=== PATIENT | male | born 1935 | race Caucasian/White ===

== ENCOUNTER 2017-01-14 18:20 | Inpatient (IN) ==
[2017-01-14] MEDS ORDERED: 0.9 % Sodium Chloride 1,000 ML IVC ONE ×2 (18:27→19:06)
--- NOTE | 2017-01-14 18:40 | Emergency Department Note ---
START Narrative - START START: I examined this patient and my medical decision-making was reviewed with the DIRECTOR CARDIOVASCULAR/PA/Advanced Practice Nurse/Resident Physician. I agree with the documented findings, disposition and treatment plan as described except to the extent set forth below. ED attending note: Patient seen with emergency medicine resident Dr. Cunningham. Please see a copy of his note for details of the H&P, evaluation, management and disposition of this patient. We independently had [id number] contact with the patient Briefly: 81-year-old male recently taken his last medicine for pneumonia comes in being found "unresponsive at home brought in by EMS is sluggish but non- lethargic. Responding to questions but fatigued. He meets sepsis criteria he is tachycardic at 125 At 24 low to 92. Ativan 1.6 with altered mental status and possible focus of infection along. Provided 35 minutes of critical care services for this patient. Patient's EKG shows nonspecific changes no acute changes when compared to prior EKG. Patient will be signed out to the evening team of Dr. Johnson and Dr. ALEX 1900, explained to the patient and the family that he will likely need to be admitted for sepsis, altered mental status. She is being signed out in serious but stabilized condition.
[2017-01-14 18:45] LABS: Basophils % 0.1 %; Eosinophils # 0.1 K/mcL (0.0-0.6); Eosinophils % 0.4 %; Hematocrit 32.8 % (37.5-50.1); Hemoglobin 10.8 g/dL (12.9-16.9); Immature Granulocytes % 0.5 % (0-4); Lymphocytes # 0.3 K/mcL (0.6-4.6); Lymphocytes % 1.9 %; Mean Corpuscular HGB Conc 32.9 g/dL (31.6-35.5); Mean Corpuscular Hemoglobin 28.9 pg (28.0-33.3); Mean Corpuscular Volume 87.7 fL (83.0-100.0); Mean Platelet Volume 10.1 fL (9.4-12.4); Monocytes # 0.7 K/mcL (0.0-1.3); Monocytes % 4.4 %; Neutrophils # 15.3 K/mcL (1.6-8.9); Platelet Count 277 K/mcL (140-400); Red Blood Count 3.74 M/mcL (4.19-5.50); Red Cell Distribution Width 12.3 % (11.5-14.5); Segmented Neutrophils % 92.7 %
--- NOTE | 2017-01-14 18:46 | Emergency Department Note ---
START Narrative - START START: 81-year-old male presenting from home with generalized weakness, altered mental status. 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 He was diagnosed with pneumonia within the last few weeks. He just finished his last antibiotic filled today. Reports that he has been feeling well up until this afternoon. The family states that there was some associated confusion and that they were unable to get him up due to generalized weakness. He then became very confused. They called a family friend over to help get him up. The family friend said that he was minimally responsive but was breathing. Upon EMS arrival, patient was alert and oriented 3. His blood glucose was 200, although he does not have a history of diabetes. His initial oxygen saturation was 72% on room air, but was placed on 3 L of oxygen and improved to 92%. Family reports a recent checkup with Dr. Moffett, since patient does have a history of 3 stents. They state that he was due for an upcoming echo to evaluate heart function. Patient denies any pain currently, just states he feels very weak and fatigued. Has a very dry mouth and has not been able to eat or drink much. On exam, patient appears very frail and chronically ill. His mucous membranes are extremely dry. His pupils are equal and reactive to light bilaterally, with normal extraocular movements. His heart is tachycardic with a faint systolic murmur. Lungs have diminished breath sounds bilaterally with no obvious rhonchi. Abdomen is soft, nontender, nondistended. There is no peripheral edema. Cap refill is about 3 seconds in bilateral upper extremities. Peripheral pulses are intact in all 4 extremities. There is no diaphoresis or cyanosis or pallor. The patient clearly meets SEPSIS criteria. Sepsis labs have been ordered. Likely source is pneumonia. We will also consider pulmonary embolism due to hypoxia and tachycardia. Patient will be signed out to the nighttime team.
[2017-01-14 18:51] LABS: INR 1.2; Prothrombin Time 13.3 Seconds (9.4-12.1)
[2017-01-14 18:54] LABS: Activated Partial Thrombo Time 28.8 Seconds (26.0-36.0)
[2017-01-14 19:01] LABS: Alanine Aminotransferase 16 Units/L (0-55); Albumin 2.9 g/dL (3.5-5.0); Albumin/Globulin Ratio 0.8 (1.1-2.2); Alkaline Phosphatase 51 Units/L (38-126); Aspartate Amino Transferase 14 Units/L (5-34); BUN/Creatinine Ratio 16 (6-26); Bilirubin,Direct 0.3 mg/dL (0.0-0.5); Bilirubin,Indirect 0.2 mg/dL (0.0-1.2); Bilirubin,Total 0.5 mg/dL (0.2-1.2); Blood Urea Nitrogen 14 mg/dL (8-26); Calcium 9.2 mg/dL (8.6-10.8); Carbon Dioxide 29 mEq/L (19-29); Chloride 95 mEq/L (98-109); Globulin 3.5 g/dL (2.4-3.5); Glucose 147 mg/dL (70-99); Magnesium 1.6 mg/dL (1.6-2.6); Osmolality,Calculated 277 (280-300); Phosphorous 2.2 mg/dL (2.3-4.7); Potassium 4.2 mEq/L (3.5-4.5); Sodium 132 mEq/L (136-145); Total Protein 6.4 g/dL (6.0-8.3); eGFR For African Americans > 60 (> 60); eGFR For Non-African Americans > 60 (> 60)
[2017-01-14] MEDS ORDERED: Ipratropium/Albuterol Neb 3 ML IH ONE (19:06)
--- NOTE | 2017-01-14 19:06 | Emergency Department Note ---
Disposition Clinical Impression: Hypoxia, Elevated troponin, Dehydration Sepsis Qualifiers: Sepsis type: sepsis due to unspecified organism Qualified Code(s): A41.9 - Sepsis, unspecified organism Pneumonia Qualifiers: Pneumonia type: due to unspecified organism Laterality: unspecified laterality Lung location: unspecified part of lung Qualified Code(s): J18.9 - Pneumonia, unspecified organism Leukocytosis Qualifiers: Leukocytosis type: unspecified Qualified Code(s): D72.829 - Elevated white blood cell count, unspecified Disposition: Admitted As Inpatient Condition: Fair Time of Disposition: 20:35 General Adult HPI - General Chief complaint: ED Altered Mental Status Stated complaint: AMS/sepsis Time Seen by Provider: 01/14/17 18:26 Source: patient, family, EMS Mode of arrival: EMS Limitations: no limitations, altered mental status Nursing Notes Reviewed: Yes Vital Signs Reviewed: Yes - History of Present Illness HPI Narrative: Patient is an 81-year-old male with past history of A. fib, hypertension, recent diagnosis of pneumonia. Patient states that he just finished an outpatient course of Levaquin yesterday. He states he has continued and worsening cough, shortness of breath, fevers. He is very weak, has had decreased fluid and food intake. He said that he got so weak on that he slowly fell to his knees and could not get up. Denies any chest pain, nausea, vomiting , abdominal pain, diarrhea, numbness, tingling, weakness, headache, loss of consciousness, any injury when he slowly fell. Pain Scale: 0 - Related Data Home Medications Medication Instructions Recorded Confirmed Cholecalciferol (Vitamin D3) 2,000 unit PO DAILY 07/23/15 01/14/17 [Vitamin D] Finasteride [Proscar] 5 mg PO DAILY 07/23/15 01/14/17 Tamsulosin [Flomax] 0.8 mg PO DAILY 07/23/15 01/14/17 Alprazolam [Xanax 0.5 MG Tablet] 0.5 mg PO HS 01/14/17 01/14/17 Diltiazem [Cardizem] 60 mg PO BID 01/14/17 01/14/17 Ferrous Sulfate 325 mg PO DAILY 01/14/17 01/14/17 Folic Acid 0.8 mg PO DAILY 01/14/17 01/14/17 Gabapentin [Neurontin] 1,600 mg PO HS 01/14/17 01/14/17 Gabapentin [Neurontin] 800 mg PO BID 01/14/17 01/14/17 HYDROcodone/Acet 7.5/325 mg [[place] 1 tab PO QID PRN 01/14/17 01/14/17 7.5-325 mg] Losartan Potassium [Cozaar] 100 mg PO DAILY PRN 01/14/17 01/14/17 Magnesium Oxide [Magnesium] 400 mg PO DAILY 01/14/17 01/14/17 Pravastatin Sodium [Pravachol] 40 mg PO HS 01/14/17 01/14/17 Ubidecarenone [Co Q-10] 200 mg PO DAILY 01/14/17 01/14/17 Vitamin E Acid Succinate [Vitamin 400 units PO DAILY 01/14/17 01/14/17 E] Allergies Allergy/AdvReac Type Severity Reaction Status Date / Time No Known Allergies Allergy Verified 07/18/15 10:18 All systems ED: reviewed and negative except as stated. Constitutional: Reports: fever Cardiovascular: Denies: chest pain, palpitations Respiratory: Reports: cough, dyspnea, wheezes Gastrointestinal: Denies: abdominal pain, nausea, vomiting, diarrhea Genitourinary: Denies: urgency, dysuria Musculoskeletal: Denies: back pain Integumentary: Denies: rash Neurological: Denies: headache, weakness, numbness, paresthesias Past Medical History - Past Medical History Attestation: Yes The following information was validated with the patient. Source: patient Medical history: Reports: atrial fibrillation, coronary artery disease, hypertension Psychiatric history: Reports: no psych history - Social History Smoking Status: Never smoker Smokeless Tobacco Status: No Alcohol use: Reports: none Drug use: Reports: none Physical Exam - General Limitations: no limitations, altered mental status General appearance: other (Listless, appears very dehydrated, dry mucous membranes, weak voice, generalized weakness on exam) - Head Head exam: atraumatic, normocephalic, normal inspection - Eye Eye exam: Present: normal appearance, PERRL, EOMI - ENT ENT exam: mucous membranes dry - Neck Neck exam: Present: normal inspection, full ROM, trachea midline - Chest Chest inspection: Present: normal inspection, symmetric chest wall rise - Respiratory Respiratory exam: Present: wheezes (and rhonchi in all lung salgu[place]) - Cardiovascular Cardiovascular exam: Present: normal rhythm, tachycardia, normal heart sounds - Abdominal Exam Abdominal exam: Present: soft, Non-Tender. Absent: tenderness, distention, guarding, rebound, rigidity - Extremities Exam Extremities exam: Present: normal inspection, full ROM. Absent: tenderness, pedal edema - Neurological Exam Neurological exam: Present: alert, oriented X3, CN II-XII intact, other ( Generalized weakness but no focal neurologic deficits.). Absent: motor sensory deficit - Psychiatric Psychiatric exam: Present: normal affect, normal mood - Skin Skin exam: Present: warm, dry, intact, normal color Course Course Narrative: Patient meets sepsis criteria. He is tachycardic, has a fever, tachypnic. 96% on 3L NC. He was in 80s off O2, does not wear O2 at home. Blood pressure within normal limits. Listless, appears very dehydrated, dry mucous membranes, weak voice, generalized weakness on exam. Lungs show wheezes and rhonchi throughout. We will go ahead and start empiric Vancomycin, Zosyn, Levaquin for sepsis and failed outpatient treatment of pneumonia. Troponin 0.23. Will give aspirin. No chest pain at this time. This likely secondary to demand ischemia. D-dimer also elevated but this is likely secondary to sepsis, we have a source of cough and shortness of breath at this time. 20:13 patient has a leukocytosis. Chest x-ray shows worsening pneumonia. Vancomycin, Zosyn, Levaquin started. Vital Signs Temperature 101.6 F H 01/14/17 18:21 Pulse Rate 122 01/14/17 18:21 Respiratory Rate 22 01/14/17 18:21 Blood Pressure 155/75 01/14/17 18:21 O2 Sat by Pulse Oximetry 91 01/14/17 18:21 Temperature 97.7 F 01/15/17 03:39 Pulse Rate 71 01/15/17 03:39 Respiratory Rate 15 01/15/17 03:39 Blood Pressure 186/78 01/15/17 03:39 O2 Sat by Pulse Oximetry 93 01/15/17 03:39 Oxygen Delivery Oxygen Delivery Nasal Cannula Medical Decision Making - MDM Narrative Medical decision making narrative: Patient meets sepsis criteria. He is tachycardic, has a fever, tachypnic. 96% on 3L NC. He was in 80s off O2, does not wear O2 at home. Blood pressure within normal limits. Listless, appears very dehydrated, dry mucous membranes, weak voice, generalized weakness on exam. Lungs show wheezes and rhonchi throughout. We will go ahead and start empiric Vancomycin, Zosyn, Levaquin for sepsis and failed outpatient treatment of pneumonia. Troponin 0.23. Will give aspirin. No chest pain at this time. This likely secondary to demand ischemia. D-dimer also elevated but this is likely secondary to sepsis, we have a source of cough and shortness of breath at this time. 20:13 patient has a leukocytosis. Chest x-ray shows worsening pneumonia. Vancomycin, Zosyn, Levaquin started. - Medical Records Medical records reviewed: Yes I reviewed the patient's medical records. - Lab Data Lab results reviewed: Yes I reviewed the patient's lab results. Result diagrams: 01/14/17 18:30 01/14/17 18:30 Lab Results 01/14/17 01/14/17 01/14/17 Range/Units 18:29 18:30 18:30 WBC 16.5 H (4.3-11.1) K/mcL RBC 3.74 L (4.19-5.50) M/mcL Hgb 10.8 L (12.9-16.9) g/dL Hct 32.8 L (37.5-50.1) % MCV 87.7 (83.0-100.0) fL MCH 28.9 (28.0-33.3) pg MCHC 32.9 (31.6-35.5) g/dL RDW 12.3 (11.5-14.5) % Plt Count 277 (140-400) K/mcL MPV 10.1 (9.4-12.4) fL Immature Gran % 0.5 (0-4) % Seg Neutrophils % 92.7 % Lymphocytes % 1.9 % Monocytes % 4.4 % Eosinophils % 0.4 % Basophils % 0.1 % Neutrophils # 15.3 H (1.6-8.9) K/mcL Lymphocytes # 0.3 L (0.6-4.6) K/mcL Monocytes # 0.7 (0.0-1.3) K/mcL Eosinophils # 0.1 (0.0-0.6) K/mcL Basophils # 0.0 (0.0-0.2) K/mcL PT 13.3 H (9.4-12.1) Seconds INR 1.2 APTT 28.8 (26.0-36.0) Seconds D-Dimer 1519 H (0-500) ng/mLFEU ABG pH (7.32-7.45) pH Units ABG pCO2 (35-45) mmHg ABG pO2 (85-104) mmHg ABG HCO3 (21-27) mEQ/L ABG Total CO2 (20-26) mEq/L ABG O2 Saturation (95-98) % ABG Base Excess (-2.0 to 3.0) mEq/L Blood Gas Modality Inspired O2 % Sodium (136-145) mEq/L Potassium (3.5-4.5) mEq/L Chloride (98-109) mEq/L Carbon Dioxide (19-29) mEq/L BUN (8-26) mg/dL Creatinine (0.72-1.25) mg/dL Est GFR ( Amer) (> 60) Est GFR (Non-Af Amer) (> 60) BUN/Creatinine Ratio (6-26) Glucose (70-99) mg/dL POC Glucose 133 H (58-89) Calculated Osmolality (280-300) Lactic Acid (0.5-2.2) mmol/L Calcium (8.6-10.8) mg/dL Phosphorus (2.3-4.7) mg/dL Magnesium (1.6-2.6) mg/dL Total Bilirubin (0.2-1.2) mg/dL Direct Bilirubin (0.0-0.5) mg/dL Indirect Bilirubin (0.0-1.2) mg/dL AST (5-34) Units/L ALT (0-55) Units/L Alkaline Phosphatase (38-126) Units/L Troponin I (0-0.03) ng/mL Serum Total Protein (6.0-8.3) g/dL Albumin (3.5-5.0) g/dL Globulin (2.4-3.5) g/dL Albumin/Globulin Ratio (1.1-2.2) Urine Color (Yellow) Urine Clarity (Clear) Urine pH (5.0-8.0) pH Units Ur Specific [place] (1.010-1.025) Urine Protein (Neg-Trace) mg/dL Urine Glucose (UA) (Normal) mg/dL Urine Ketones (Negative) mg/dL Urine Blood (Negative) Urine Nitrite (Negative) Urine Bilirubin (Negative) Urine Urobilinogen (Normal) mg/dL Ur Leukocyte Esterase (Negative) Urine Microscopic RBC (0-3) per hpf Urine Microscopic WBC (0-3) per hpf Ur Squamous Epith Cells (None-Few) per lpf Urine Bacteria (None-Few) per hpf Hyaline Casts (None-Few) per lpf Ur Culture Indicated? (NO) 01/14/17 01/14/17 01/14/17 Range/Units 18:30 18:30 18:30 WBC (4.3-11.1) K/mcL RBC (4.19-5.50) M/mcL Hgb (12.9-16.9) g/dL Hct (37.5-50.1) % MCV (83.0-100.0) fL MCH (28.0-33.3) pg MCHC (31.6-35.5) g/dL RDW (11.5-14.5) % Plt Count (140-400) K/mcL MPV (9.4-12.4) fL Immature Gran % (0-4) % Seg Neutrophils % % Lymphocytes % % Monocytes % % Eosinophils % % Basophils % % Neutrophils # (1.6-8.9) K/mcL Lymphocytes # (0.6-4.6) K/mcL Monocytes # (0.0-1.3) K/mcL Eosinophils # (0.0-0.6) K/mcL Basophils # (0.0-0.2) K/mcL PT (9.4-12.1) Seconds INR APTT (26.0-36.0) Seconds D-Dimer (0-500) ng/mLFEU ABG pH (7.32-7.45) pH Units ABG pCO2 (35-45) mmHg ABG pO2 (85-104) mmHg ABG HCO3 (21-27) mEQ/L ABG Total CO2 (20-26) mEq/L ABG O2 Saturation (95-98) % ABG Base Excess (-2.0 to 3.0) mEq/L Blood Gas Modality Inspired O2 % Sodium 132 L (136-145) mEq/L Potassium 4.2 (3.5-4.5) mEq/L Chloride 95 L (98-109) mEq/L Carbon Dioxide 29 (19-29) mEq/L BUN 14 (8-26) mg/dL Creatinine 0.88 (0.72-1.25) mg/dL Est GFR ( Amer) > 60 (> 60) Est GFR (Non-Af Amer) > 60 (> 60) BUN/Creatinine Ratio 16 (6-26) Glucose 147 H (70-99) mg/dL POC Glucose (58-89) Calculated Osmolality 277 L (280-300) Lactic Acid 0.9 (0.5-2.2) mmol/L Calcium 9.2 (8.6-10.8) mg/dL Phosphorus 2.2 L (2.3-4.7) mg/dL Magnesium 1.6 (1.6-2.6) mg/dL Total Bilirubin 0.5 (0.2-1.2) mg/dL Direct Bilirubin 0.3 (0.0-0.5) mg/dL Indirect Bilirubin 0.2 (0.0-1.2) mg/dL AST 14 (5-34) Units/L ALT 16 (0-55) Units/L Alkaline Phosphatase 51 (38-126) Units/L Troponin I 0.23 H* (0-0.03) ng/mL Serum Total Protein 6.4 (6.0-8.3) g/dL Albumin 2.9 L (3.5-5.0) g/dL Globulin 3.5 (2.4-3.5) g/dL Albumin/Globulin Ratio 0.8 L (1.1-2.2) Urine Color (Yellow) Urine Clarity (Clear) Urine pH (5.0-8.0) pH Units Ur Specific [place] (1.010-1.025) Urine Protein (Neg-Trace) mg/dL Urine Glucose (UA) (Normal) mg/dL Urine Ketones (Negative) mg/dL Urine Blood (Negative) Urine Nitrite (Negative) Urine Bilirubin (Negative) Urine Urobilinogen (Normal) mg/dL Ur Leukocyte Esterase (Negative) Urine Microscopic RBC (0-3) per hpf Urine Microscopic WBC (0-3) per hpf Ur Squamous Epith Cells (None-Few) per lpf Urine Bacteria (None-Few) per hpf Hyaline Casts (None-Few) per lpf Ur Culture Indicated? (NO) 01/14/17 01/14/17 Range/Units 19:14 19:34 WBC (4.3-11.1) K/mcL RBC (4.19-5.50) M/mcL Hgb (12.9-16.9) g/dL Hct (37.5-50.1) % MCV (83.0-100.0) fL MCH (28.0-33.3) pg MCHC (31.6-35.5) g/dL RDW (11.5-14.5) % Plt Count (140-400) K/mcL MPV (9.4-12.4) fL Immature Gran % (0-4) % Seg Neutrophils % % Lymphocytes % % Monocytes % % Eosinophils % % Basophils % % Neutrophils # (1.6-8.9) K/mcL Lymphocytes # (0.6-4.6) K/mcL Monocytes # (0.0-1.3) K/mcL Eosinophils # (0.0-0.6) K/mcL Basophils # (0.0-0.2) K/mcL PT (9.4-12.1) Seconds INR APTT (26.0-36.0) Seconds D-Dimer (0-500) ng/mLFEU ABG pH 7.39 (7.32-7.45) pH Units ABG pCO2 48 H (35-45) mmHg ABG pO2 69 L (85-104) mmHg ABG HCO3 29.1 H (21-27) mEQ/L ABG Total CO2 30.6 H (20-26) mEq/L ABG O2 Saturation 93 L (95-98) % ABG Base Excess 3.5 H (-2.0 to 3.0) mEq/L Blood Gas Modality NC Inspired O2 32 % Sodium (136-145) mEq/L Potassium (3.5-4.5) mEq/L Chloride (98-109) mEq/L Carbon Dioxide (19-29) mEq/L BUN (8-26) mg/dL Creatinine (0.72-1.25) mg/dL Est GFR ( Amer) (> 60) Est GFR (Non-Af Amer) (> 60) BUN/Creatinine Ratio (6-26) Glucose (70-99) mg/dL POC Glucose (58-89) Calculated Osmolality (280-300) Lactic Acid (0.5-2.2) mmol/L Calcium (8.6-10.8) mg/dL Phosphorus (2.3-4.7) mg/dL Magnesium (1.6-2.6) mg/dL Total Bilirubin (0.2-1.2) mg/dL Direct Bilirubin (0.0-0.5) mg/dL Indirect Bilirubin (0.0-1.2) mg/dL AST (5-34) Units/L ALT (0-55) Units/L Alkaline Phosphatase (38-126) Units/L Troponin I (0-0.03) ng/mL Serum Total Protein (6.0-8.3) g/dL Albumin (3.5-5.0) g/dL Globulin (2.4-3.5) g/dL Albumin/Globulin Ratio (1.1-2.2) Urine Color Dark Yellow (Yellow) Urine Clarity Clear (Clear) Urine pH 6.0 (5.0-8.0) pH Units Ur Specific [place] 1.023 (1.010-1.025) Urine Protein Trace (Neg-Trace) mg/dL Urine Glucose (UA) Normal (Normal) mg/dL Urine Ketones Negative (Negative) mg/dL Urine Blood Negative (Negative) Urine Nitrite Negative (Negative) Urine Bilirubin Small H (Negative) Urine Urobilinogen Normal (Normal) mg/dL Ur Leukocyte Esterase Negative (Negative) Urine Microscopic RBC 0-3 (0-3) per hpf Urine Microscopic WBC 0-3 (0-3) per hpf Ur Squamous Epith Cells Many H (None-Few) per lpf Urine Bacteria None Seen (None-Few) per hpf Hyaline Casts None Seen (None-Few) per lpf Ur Culture Indicated? NO (NO) - Radiology Data Radiology results reviewed: Yes I reviewed the patient's radiology results. Chest X-Ray 01/14/17 18:27 IMPRESSION: Increasing patchy multifocal pneumonia, possibly an atypical or viral pneumonia. D/ / Adi So MD / Adi So MD Interpreting Provider: Adi So MD Critical Care Time Critical Care Time: Yes Total Critical Care Time: 35 Attestation: Acute hypoxia and non-ST elevation LA. Multifocal pneumonia Butch - Butch Situation: Demographics, MOA Background: Presenting Complaint, Relevant PMH, Meds, & Allergies Assessment: Vital Signs, Course and respsone to treatment, Exam Concerns, Patient/Family Expectation, Pertinant Lab Results, Outstanding Labs Recommendation: Barrier(s) to disposition, Recommendation based on pending studies, treatments, or consults Butch Report Given to: Dr. Fritz Rae Repor Time: 20:34 Attestation Statement - Attestation Attestation: Dr. Johnson note: Patient was seen in conjunction with resident Dr. David Castañeda; please see his chart for complete documentation. I spent [id number] time with the patient and agree with the patient's treatment and disposition. Patient's blood work was reviewed. Imaging is consistent with pneumonia. Afebrile. Blood pressure stable. Admitted in stabilized improvement in improved condition. Troponin was also noted. Case was discussed extensively with the hospitalist. Admitted in improved condition
[2017-01-14] MEDS ORDERED: Aspirin 325 MG TABLET PO ONE (19:13)
[2017-01-14 19:23] LABS: Bilirubin,Urine Small (Negative); Blood,Urine Negative (Negative); Clarity,Urine Clear (Clear); Color,Urine Dark Yellow (Yellow); Glucose,Urine (UA) Normal (Normal); Ketones,Urine Negative (Negative); Leukocyte Esterase,Urine Negative (Negative); Nitrite,Urine Negative (Negative); Protein,Urine Trace mg/dL (Neg-Trace); Specific Gravity,Urine 1.023 (1.010-1.025); Urobilinogen,Urine Normal (Normal)
[2017-01-14 19:26] LABS: Bacteria,Urine None Seen per hpf (None-Few); Hyaline Casts,Urine None Seen per lpf (None-Few); RBC,Urine 0-3 per hpf (0-3); Squamous Epithelial Cell,Urine Many per lpf (None-Few); WBC,Urine 0-3 per hpf (0-3)
[2017-01-14 19:38] LABS: ABG Base Excess 3.5 mEq/L (-2.0 to 3.0); ABG HCO3 29.1 mEQ/L (21-27); ABG Oxygen Saturation 93 % (95-98); ABG PCO2 48 mmHg (35-45); ABG PH 7.39 pH Units (7.32-7.45); ABG PO2 69 mmHg (85-104); ABG TCO2 30.6 mEq/L (20-26)
[2017-01-14 19:39] LABS: Blood Gas FiO2 32 %
[2017-01-14] MEDS ORDERED: Piperacillin/Tazobactam 3.375 GM in D5% in Water (Mini-Bag+) 100 ML IVPB ONE (20:07)
[2017-01-14] MEDS ORDERED: Levofloxacin 750 MG/150 ML 750 MG/150 ML BAG IVPB ONE (20:07)
[2017-01-14] MEDS ORDERED: Vancomycin 750 MG in D5% in Water 250 ML IVPB ONE (20:08)
[2017-01-14] MEDS ORDERED: Acetaminophen 325 MG TABLET PO PRN (23:25)
[2017-01-14] MEDS ORDERED: Ondansetron 4 MG/2 ML VIAL IVP PRN (23:25)
[2017-01-14] MEDS ORDERED: 0.9 % Sodium Chloride 1,000 ML IVC SCH (23:30)
--- NOTE | 2017-01-14 23:53 | Internal Med History&Physical ---
<Carolina Pham - Last Filed: 01/15/17 01:15> Date of Encounter: 01/15/17 Time of Encounter: 23:00 Assessment and Plan (1) Sepsis Current visit: Yes Status: Acute - With fever (T 101.6), tachycardia, tachypnea, leukocytosis (WBC 16.5), some degree of altered mental status. Lactic acid 0.9. - Likely secondary to pneumonia failed to response to outpatient levofloxacin therapy in the setting of dehydration from poor oral intake recently. - Blood culture pending. - UA does not suggest UTI. - Will obtain sputum culture with gram stain. - Also check respiratory infection panel and urine antigens for Legionella & S. pneumoniae. - Hydration with IV NS. - Continue IV vancomycin, Zosyn and levofloxacin. Will de-escalate later based on clinical findings and culture results. - Closely monitor. Qualifiers: Sepsis type: sepsis due to unspecified organism Qualified Code(s): A41.9 - Sepsis, unspecified organism (2) Acute respiratory failure with hypoxia Current visit: Yes Status: Acute - Patient was noted to have O2 sat in 80s on room air in ED. - Patient is currently on 2L oxygen with O2 sat ~95%. Patient does not use oxygen at home. - ABG pH 7.39, pCO2 48, pO2 69 and HCO3 29.1. - Likely secondary to current pneumonia. - Continue supplemental oxygen. - Duoneb prn shortness of breath. - Continue to monitor. (3) Pneumonia Current visit: Yes Status: Acute - Community acquired pneumonia with failure to response to outpatient levofloxacin therapy. - CXR suggests worsening multifocal pneumonia, likely atypical vs viral. - Will obtain sputum culture with gram stain. - Also check respiratory infection panel and urine antigens for Legionella & S. pneumoniae. - Continue IV vancomycin, Zosyn and levofloxacin. Will de-escalate later based on clinical findings and culture results. Qualifiers: Pneumonia type: due to unspecified organism Laterality: unspecified laterality Lung location: unspecified part of lung Qualified Code(s): J18.9 - Pneumonia, unspecified organism (4) Elevated troponin Current visit: Yes Status: Acute - Troponin at 0.23 on admission and then increased to 0.89 after 6 hours. - Likely secondary to current sepsis - Doubt MA given no reported chest pain and no significant ischemic change on EKG. - Continue to trend troponin q6H. - Closely monitor with telemetry. (5) D-dimer, elevated Current visit: Yes Status: Acute - Elevated D-dimer at 1519. - Likely secondary to current sepsis. But cannot rule out pulmonary embolism given patient does have recent long-distance drive and history of cancer. - Will obtain CTA chest to evaluate for any possible PE. (6) Hypertension Current visit: Yes Status: Chronic - BP within normal range. - Continue home dose Losartan. Qualifiers: Hypertension type: essential hypertension Qualified Code(s): I10 - Essential (primary) hypertension (7) DVT prophylaxis Current visit: Yes Status: Acute - SQ heparin. Internal Medicine - H&P: HPI Chief complaint: Generalized weakness, fever, cough, shortness of breath, confusion Admitted From: Emergency Dept Plans for Post Hospital Care: Home History of present illness: Mr. 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 Patient presented with generalized weakness and fever. Patient started to fever, shortness of breath and productive cough with green sputum since 01/04. Patient saw his PCP Dr. Mora on 01/05 and was started on PO levofloxacin which he just finished the course today. Patient reports the shortness of breath and cough improves but still has fever as high as 103 at home. Patient still has feel sick with generalized weakness especially on bilateral lower extremities. Patient also has poor appetite and oral intake due to current illness. Patient also has some chest muscle soreness which he thinks it's from cough. Patient denies chest pain/pressure, palpitation, lightheadedness, syncope, abdominal pain, nausea, vomiting, diarrhea, skin rash/ itchiness. Patient's reports recent drive back from [place] with frequent stops. Patient reports no known personal or family history of blood clot disorder. Patient is up to date for all his vaccinations including flu shot and denies recent sick contact. In ED, patient was noted to have fever 101.6, tachycardia and tachypnea with O2 sat in 80s on room air. Patient doesn't use oxygen at home. CXR showed increased patchy multifocal pneumonia, likely atypical vs. viral pneumonia. Patient received bolus of IV NS and started on IV vancomycin, Zosyn and levofloxacin. Patient is admitted for further evaluation and management. 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), coronary artery disease (s/p heart cath and LAD BMS x3 in 2011), hyperlipidemia, hypertension Psychiatric history: no psych history - Past Surgical History Surgical History: angioplasty/stent (LAD BMS x3 in 2011), appendectomy, carotid endarterectomy (Right, with angioplasty) - Social History Smoking Status: Former smoker Smokeless Tobacco Status: No Alcohol use: none Drug use: none - Family History Father Living Status: Age at : 92 Cause of : Age Mother Living Status: Age at : 74 Cause of : pneumonia Hx Family Cardiac Disorders: Yes Internal Medicine - H&P: Meds Cholecalciferol (Vitamin D3) [Vitamin D] 2,000 unit PO DAILY 07/23/15 [History] Finasteride [Proscar] 5 mg PO DAILY 07/23/15 [History] Tamsulosin [Flomax] 0.8 mg PO DAILY 07/23/15 [History] Alprazolam [Xanax 0.5 MG Tablet] 0.5 mg PO HS 01/14/17 [History] Diltiazem [Cardizem] 60 mg PO BID 01/14/17 [History] Ferrous Sulfate 325 mg PO DAILY 01/14/17 [History] Folic Acid 0.8 mg PO DAILY 01/14/17 [History] Gabapentin [Neurontin] 1,600 mg PO HS 01/14/17 [History] Gabapentin [Neurontin] 800 mg PO BID 01/14/17 [History] HYDROcodone/Acet 7.5/325 mg [[place] 7.5-325 mg] 1 tab PO QID PRN 01/14/17 [ History] Losartan Potassium [Cozaar] 100 mg PO DAILY PRN 01/14/17 [History] Magnesium Oxide [Magnesium] 400 mg PO DAILY 01/14/17 [History] Pravastatin Sodium [Pravachol] 40 mg PO HS 01/14/17 [History] Ubidecarenone [Co Q-10] 200 mg PO DAILY 01/14/17 [History] Vitamin E Acid Succinate [Vitamin E] 400 units PO DAILY 01/14/17 [History] Allergies No Known Allergies Allergy (Verified 07/18/15 10:18) All Systems PM: A 10-system review of systems was performed and is negative for pertinent findings except as documented above in the HPI. - Constitutional Constitutional: anorexia, chills, fever(s), weakness - EENT Eyes: no change in vision Ears: no decreased hearing Nose, mouth and throat: dysphagia (Chronic, s/p chemo & radiation therapy for tongue & throat cancer) - Cardiovascular Cardiovascular ROS IM: no chest pain, no edema, no lightheadedness, no palpitations, no syncope - Respiratory Respiratory: as per HPI, cough, dyspnea, change in phlegm color (Green), pain with cough, no hemoptysis - Gastrointestinal Gastrointestinal: no abdominal pain, no diarrhea, no hematochezia, no melena, no nausea, no vomiting - Genitourinary Genitourinary ROS male: no difficulty urinating, no dysuria, no hematuria - Musculoskeletal Musculoskeletal ROS IM: myalgias (Chest wall soreness), no arthralgias - Integumentary Integumentary IM: no pruritus, no rash - Neurological Neurological ROS: no focal weakness, no numbness, no tingling - Hematologic/Lymphatic Hematologic/Lymphatic: easy bruising, no easy bleeding - Constitutional Vitals: Temp Pulse Resp BP Pulse Ox 97.8 F 79 15 121/65 93 01/14/17 23:49 01/14/17 23:49 01/14/17 23:49 01/14/17 23:49 01/14/17 23:49 General appearance: Present: cooperative, A&O X 3 ([place] to self, place and part of time (year). Per family at bedside, patient is slightly confused compared to his baseline. ), no acute distress, answers questions appropriately - Head Head exam: Present: atraumatic, normocephalic - Eye Eye exam: Present: EOMI, PERRL, conjuntiva pink, sclera anicteric - Neck Neck exam general surgery: Present: supple, trachea midline. Absent: lymphadenopathy - Respiratory Respiratory exam: Present: rales (Diffuse), rhonchi (Diffuse). Absent: accessory muscle use, wheezes - Cardiovascular Cardiovascular exam: Present: RRR, +S1, +S2. Absent: diastolic murmur, gallop, rubs, systolic murmur - GI/Abdominal GI/Abdominal exam: Present: normal bowel sounds, soft, no peritoneal signs. Absent: distended, tenderness - Extremities Exam Extremities exam: Present: warm, radial pulses palpable and symetrical. Absent : calf tenderness, cyanotic, pedal edema - Neurological Exam Neurological exam: Present: CN II-XII intact, oriented X3, no focal deficits. Absent: pronater drift, facial droop, speech deficit - Skin Skin exam: Present: dry, intact, warm Internal Med - H&P Results - Labs CBC & Chem 7: 01/14/17 18:30 01/14/17 18:30 Labs: Short CBC 01/14/17 Range/Units 18:30 WBC 16.5 H (4.3-11.1) K/mcL Hgb 10.8 L (12.9-16.9) g/dL Hct 32.8 L (37.5-50.1) % Plt Count 277 (140-400) K/mcL Neutrophils # 15.3 H (1.6-8.9) K/mcL BMP 01/14/17 Range/Units 18:30 Sodium 132 L (136-145) mEq/L Potassium 4.2 (3.5-4.5) mEq/L Chloride 95 L (98-109) mEq/L Carbon Dioxide 29 (19-29) mEq/L BUN 14 (8-26) mg/dL Creatinine 0.88 (0.72-1.25) mg/dL Glucose 147 H (70-99) mg/dL Calcium 9.2 (8.6-10.8) mg/dL Cardiac Enzymes 01/14/17 Range/Units 18:30 Troponin I 0.23 H* (0-0.03) ng/mL Liver Function 01/14/17 Range/Units 18:30 Total Bilirubin 0.5 (0.2-1.2) mg/dL Direct Bilirubin 0.3 (0.0-0.5) mg/dL AST 14 (5-34) Units/L ALT 16 (0-55) Units/L Alkaline Phosphatase 51 (38-126) Units/L Albumin 2.9 L (3.5-5.0) g/dL Urine 01/14/17 Range/Units 19:14 Urine Color Dark Yellow (Yellow) Urine Clarity Clear (Clear) Urine pH 6.0 (5.0-8.0) pH Units Ur Specific [place] 1.023 (1.010-1.025) Urine Protein Trace (Neg-Trace) mg/dL Urine Glucose (UA) Normal (Normal) mg/dL - EKG Data -: EKG Interpreted by Myself EKG shows normal: sinus rhythm Rate: normal - EKG Data Prior EKG available for review: yes When compared to previous EKG: there is no significant change EKG comments: 01/15/17 00:11 HR 79, ME 136, QRS 132. No significant ischemic change compared to prior EKG in 2016. - Impressions Impressions Chest X-Ray 01/14/17 18:27 IMPRESSION: Increasing patchy multifocal pneumonia, possibly an atypical or viral pneumonia. D/ / Adi So MD / Adi So MD Interpreting Provider: Adi So MD <Tim Sellersrichardprabhjot Worthington - Last Filed: 01/15/17 05:57> Date of Encounter: 01/14/17 Internal Medicine - H&P: HPI History of present illness: Mr. Dudley is a 81 year old male All Systems PM: A 10-system review of systems was performed and is negative for pertinent findings except as documented above in the HPI. - Constitutional Vitals: Temp Pulse Resp BP Pulse Ox 97.7 F 71 15 186/78 93 01/15/17 03:39 01/15/17 03:39 01/15/17 03:39 01/15/17 03:39 01/15/17 03:39 Internal Med - H&P Results - Labs CBC & Chem 7: 01/15/17 05:24 01/14/17 18:30 Labs: Short CBC 01/15/17 Range/Units 05:24 WBC 17.1 H (4.3-11.1) K/mcL Hgb 10.8 L (12.9-16.9) g/dL Hct 33.1 L (37.5-50.1) % Plt Count 273 (140-400) K/mcL Neutrophils # 14.7 H (1.6-8.9) K/mcL Cardiac Enzymes 01/14/17 Range/Units 23:50 Troponin I 0.89 H* (0-0.03) ng/mL - Impressions ITS Impressions Chest CTA 01/15/17 01:09 IMPRESSION: 1. No evidence of pulmonary emboli. 2. Diffuse scattered patchy areas of consolidation with additional multiple small airspace and ground-glass nodular opacity. Overall findings are suspicious for multifocal pneumonia. D/ / Vick Correia MD / Vick Correia MD Interpreting Provider: Vick Correia MD - Attending Attestation I performed history and physical examination of the patient and discussed management with resident/Heat Treater Helper. I reviewed the resident/ Interns note and agree with the documented findings and plan of care. 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 Patient presented with generalized weakness and fever. Pt was seen by his PCP and was diagnosed to have pneumonia on 01/05 and was started on PO levofloxacin, which he completed. Pt continues to have fever and generalized weakness. In ED, patient was noted to have fever 101.6, tachycardia and tachypnea with O2 sat in 80s on room air. CXR reported increased patchy multifocal pneumonia possibly an atypical or viral pneumonia. Patient received bolus of IV NS and started on IV vancomycin, Zosyn and levofloxacin. Patient is admitted for further evaluation and management. O/E: B/L basal crackles heard. Cardiac: RRR. EKG personally reviewed by me. Initial EKG showed sinus tachycardia with heart rate of 121, right bundle branch block, T-wave inversion and Q waves in leads 1 and aVL. EKG was repeated which showed sinus rhythm and right bundle branch block. Chest x-ray personally reviewed. Labs showed leukocytosis and elevated troponin. A/P: Multifocal pneumonia/acute respiratory failure/sepsis: Patient failed outpatient therapy with levofloxacin. Patient is started on vancomycin, Zosyn and levofloxacin. Continue. We will request a sputum culture, respiratory viral panel and pulmonary consult. Elevated troponin: Possible demand ischemia secondary to sepsis versus NSTEMI. Cardiology consultation and echocardiogram. Elevated d-dimer: will obtain CTA chest to exclude Pulmonary embolism.
[2017-01-15] MEDS ORDERED: Ipratropium/Albuterol Neb 3 ML IH PRN (00:48)
[2017-01-15] MEDS ORDERED: Vancomycin 750 MG in D5% in Water 250 ML IVPB SCH ×2 (01:00)
[2017-01-15 05:50] LABS: Basophils % 0.2 %; Eosinophils # 0.1 K/mcL (0.0-0.6); Eosinophils % 0.6 %; Hematocrit 33.1 % (37.5-50.1); Hemoglobin 10.8 g/dL (12.9-16.9); Immature Granulocytes % 0.6 % (0-4); Mean Corpuscular HGB Conc 32.6 g/dL (31.6-35.5); Mean Corpuscular Hemoglobin 29.3 pg (28.0-33.3); Mean Corpuscular Volume 89.7 fL (83.0-100.0); Mean Platelet Volume 10.3 fL (9.4-12.4); Monocytes # 1.1 K/mcL (0.0-1.3); Monocytes % 6.6 %; Neutrophils # 14.7 K/mcL (1.6-8.9); Platelet Count 273 K/mcL (140-400); Red Blood Count 3.69 M/mcL (4.19-5.50); Red Cell Distribution Width 12.5 % (11.5-14.5)
[2017-01-15 06:05] LABS: BUN/Creatinine Ratio 13 (6-26); Blood Urea Nitrogen 10 mg/dL (8-26); Calcium 8.8 mg/dL (8.6-10.8); Carbon Dioxide 25 mEq/L (19-29); Chloride 103 mEq/L (98-109); Glucose 91 mg/dL (70-99); Osmolality,Calculated 279 (280-300); Sodium 135 mEq/L (136-145); eGFR For African Americans > 60 (> 60); eGFR For Non-African Americans > 60 (> 60)
[2017-01-15] MEDS: *HR* Heparin 5,000 UNIT/ML VIAL SQ SCH ×2 (06:28→17:43)
[2017-01-15 06:40] LABS: C-Reactive Protein 102 mg/L (Less than 5); Chol/HDL Ratio 3.1 (0-4.9); Cholesterol 84 mg/dL (< 200); HDL Cholesterol 27 mg/dL (40-59); LDL Cholesterol,Calculated 48 mg/dL (0-99); Magnesium 1.8 mg/dL (1.6-2.6); Triglycerides 47 mg/dL (< 150)
[2017-01-15] MEDS: Piperacillin/Tazobactam 3.375 GM in D5% in Water (Mini-Bag+) 100 ML IVPB SCH ×3 (08:46→23:18)
[2017-01-15] MEDS: Finasteride 5 MG TABLET PO SCH (08:53)
[2017-01-15] MEDS: dilTIAZem HCl 60 MG TABLET PO SCH ×2 (08:53→21:00)
[2017-01-15] MEDS: Gabapentin 400 MG CAPSULE PO SCH ×4 (08:53→20:59)
[2017-01-15] MEDS: Magnesium Oxide 400 MG TABLET PO SCH (08:54)
--- NOTE | 2017-01-15 09:48 | Cardiology Consult Note ---
Date of Encounter: 01/15/17 Time of Encounter: 09:39 Assessment and Plan (1) Elevated troponin Current Visit: Yes Status: Acute Troponin peaking at 0.89. Likely demand ischemia in the setting of worsening pneumonia/ sepsis. Denies chest pain. Check TTE. Continue asa, statin, and CCB. Prior CV testing: Previous cardiac testing. Exercise nuclear stress test 01/18/2015: Negative for ischemia or prior infarction. Echocardiogram 01/18/2015: EF 60%. Moderate diastolic dysfunction. Mild MR, mild AI, and mild TR. Mild pulmonary hypertension . (2) CAD (coronary artery disease) Current Visit: Yes Status: Chronic H/o PCI to the LAD x 3 in 2011. Continue asa, statin, and bb. Qualifiers: Coronary Disease-Associated Artery/Lesion type: [place] artery [place] vs. transplanted heart: [place] heart Associated angina: without angina Qualified Code(s): I25.10 - Atherosclerotic heart disease of [place] coronary artery without angina pectoris (3) Pneumonia Current Visit: Yes Status: Acute - Worsening Community acquired pneumonia. Management per primary team. Blood cultures and sputum cultures pending. Qualifiers: Pneumonia type: due to unspecified organism Laterality: unspecified laterality Lung location: unspecified part of lung Qualified Code(s): J18.9 - Pneumonia, unspecified organism Discussion w patient/family: The assessment and plan as outlined above was discussed with the patient and/or family members who expressed understanding and agreement. All questions were answered. Thank you for involving us in the care of your patient. Please call with any questions. History of Present Illness Consult date: 01/15/17 Requesting physician: Tara Sellers Consult reason: Elevated troponin Chief complaint: altered mental status History of present illness: Mr. Dudley is a 81 year old male who presented after being found on the floor by his . Once he arrived to the emergency department he was arousable. He remembers standing up to reach for a TV controller and feeling dizzy. He then woke up on the floor. He reports recent diagnosis of pneumonia and was on oral antibiotics. Admits to continued weakness, shortness of breath, dizziness, fever , and chills. He states he thought he was feeling better and taking the antibiotic. Admits to cough productive of sputum that is chronic since having head and neck cancer. He denies any chest pain or palpitations. Cardiology consulted for elevated troponin peaking at 0.89. CTA of the chest was negative for PE but did show possible pneumonia. CXR showed increasing patchy multi- focal pneumonia. He was found to be febrile with a temperature 101.6, tachycardic with heart rate 120s, and had increased white blood cells at 16.5. He was admitted for sepsis. Blood cultures are pending. He has a past medical history of hypertension, coronary artery disease status post PCI 3 to the LAD in 2011, carotid artery disease s/p cea, and tounge and throat cancer status post chemotherapy and radiation. Prior CV testing: Exercise nuclear stress test 01/18/2015: Negative for ischemia or prior infarction. Echocardiogram 01/18/2015: EF 60%. Moderate diastolic dysfunction. Mild MR, mild AI, and mild TR. Mild pulmonary hypertension (RVSP 38 mmHg). Cholesterol 12/2015: Total 109, LDL 52, HDL 48, TG 46. Carotid Duplex 12/2015: Minimal plaque formation. Left vertebral artery occluded. Past Med Surg Social Fam HX - Past Medical History Medical history: cancer, coronary artery disease, hypertension Psychiatric history: no psych history - Past Surgical History Surgical History: angioplasty/stent (LAD BMS x3 in 2011), appendectomy, carotid endarterectomy (Right, with angioplasty) - Social History Smoking Status: Never smoker Smokeless Tobacco Status: No Alcohol use: none Drug use: none - Family History Father Living Status: Age at : 92 Cause of : Age Mother Name: Zulema Matos Living Status: Age at : 74 Cause of : pneumonia Hx Family Cardiac Disorders: Yes Medications and Allergies Cholecalciferol (Vitamin D3) [Vitamin D] 2,000 unit PO DAILY 07/23/15 [History] Finasteride [Proscar] 5 mg PO DAILY 07/23/15 [History] Tamsulosin [Flomax] 0.8 mg PO DAILY 07/23/15 [History] Alprazolam [Xanax 0.5 MG Tablet] 0.5 mg PO HS 01/14/17 [History] Diltiazem [Cardizem] 60 mg PO BID 01/14/17 [History] Ferrous Sulfate 325 mg PO DAILY 01/14/17 [History] Folic Acid 0.8 mg PO DAILY 01/14/17 [History] Gabapentin [Neurontin] 1,600 mg PO HS 01/14/17 [History] Gabapentin [Neurontin] 800 mg PO BID 01/14/17 [History] HYDROcodone/Acet 7.5/325 mg [[place] 7.5-325 mg] 1 tab PO QID PRN 01/14/17 [ History] Losartan Potassium [Cozaar] 100 mg PO DAILY PRN 01/14/17 [History] Magnesium Oxide [Magnesium] 400 mg PO DAILY 01/14/17 [History] Pravastatin Sodium [Pravachol] 40 mg PO HS 01/14/17 [History] Ubidecarenone [Co Q-10] 200 mg PO DAILY 01/14/17 [History] Vitamin E Acid Succinate [Vitamin E] 400 units PO DAILY 01/14/17 [History] Allergies No Known Allergies Allergy (Verified 07/18/15 10:18) All Systems Review: A 10-system review of systems was performed and is negative for pertinent findings except as documented above in the HPI. Physical Examination Vital Signs, Last 4 Hours Temp Pulse Resp BP Pulse Ox 01/15/17 07:53 98.8 F 101 22 154/72 93 01/15/17 06:03 161/56 General: Other (Frail elderly male, mildly confused) HEENT: Atraumatic, Normocephaly, Mucus Membranes Moist Neck: No JVD, Normal carotid pulses Cardiac: Reg Rate and Rhythm, Normal S1 and S2, No Murmur Lungs: Normal Breath Sounds, No Wheeze, Rales, Rhonchi, Other (diminished, cough productive of yellow sputum) Neuro: Alert and responsive, No focal deficits noted Abdomen: Soft, Non-Tender Skin: No rashes noted on visualized skin Musculoskeletal: No Chest Wall Tenderness Extremities: No Clubbing, No Cyanosis, No Edema, Normal Pulses Results 01/15/17 05:24 01/15/17 05:24 Lab Results 01/14/17 01/15/17 01/15/17 23:50 05:24 05:24 WBC 17.1 H Hgb 10.8 L Hct 33.1 L Plt Count 273 Sodium 135 L Potassium 4.0 Chloride 103 Carbon Dioxide 25 BUN 10 Creatinine 0.76 Glucose 91 Calcium 8.8 Magnesium 1.8 Troponin I 0.89 H* 01/15/17 05:24 WBC Hgb Hct Plt Count Sodium Potassium Chloride Carbon Dioxide BUN Creatinine Glucose Calcium Magnesium Troponin I 0.78 H* - Imaging and Cardiology Stress Test: report reviewed Echo: report reviewed - EKG Interpretation EKG results cardiology: personally reviewed (ST with RBBB) Consult Discharge Plan - Plan Referrals: Tulio Mora MD [Primary Care Provider] -
--- NOTE | 2017-01-15 12:19 | Internal Med Progress Note ---
Date of Encounter: 01/15/17 Time of Encounter: 12:19 - Assessment and plan (1) Sepsis Current Visit: Yes Status: Acute Assessment and plan: Tmax 101.6,tachycardia, tachypnea, leukocytosis (WBC 16.5), normal lactate Secondary to multi-focal pneumonia Blood culture pending. UA does not suggest UTI. Follow sputum culture Resp panel is pending, Urine for legionella and Strep Ag pending Continue IV vancomycin, Zosyn and azithromycin Will de-escalate prn Qualifiers: Sepsis type: sepsis due to unspecified organism Qualified Code(s): A41.9 - Sepsis, unspecified organism (2) Pneumonia Current Visit: Yes Status: Acute Assessment and plan: As above CXR suggests possibly atypial PNA Patient had received 10 days of levoflox O-P Will change levoflox to azithromycin COntinue supplemental O2 and Vanco/Zosyn Qualifiers: Pneumonia type: due to unspecified organism Laterality: unspecified laterality Lung location: unspecified part of lung Qualified Code(s): J18.9 - Pneumonia, unspecified organism (3) Elevated troponin Current Visit: Yes Status: Acute (4) Acute respiratory failure with hypoxia Current Visit: Yes Status: Acute Assessment and plan: Continue O2 (5) Hypertension Current Visit: Yes Status: Chronic Assessment and plan: Controlled, continue home meds Qualifiers: Hypertension type: essential hypertension Qualified Code(s): I10 - Essential (primary) hypertension (6) CAD (coronary artery disease) Current Visit: Yes Status: Chronic Assessment and plan: Chronic , stable No Chest pain Elevated troponin possibly from demand ischemia Cardiology eval noted ECHO remarkable for moderate LVDD, normal EF, Mild TR, Mild Pulm HTN, no WMA Qualifiers: Coronary Disease-Associated Artery/Lesion type: [place] artery [place] vs. transplanted heart: [place] heart Associated angina: without angina Qualified Code(s): I25.10 - Atherosclerotic heart disease of [place] coronary artery without angina pectoris - Subjective Interval history: Initial encounter 81 Y/O M with PMH of HTN, head and neck CA, CAD, HLD Admitted for management of acute hypoxic respiratory failure and sepsis secondary to multi-focal pneumonia Seen and evaluated at bedside Able to speak full sentences, anxious but not in any form of distress - Constitutional Vitals: Temp Pulse Resp BP Pulse Ox 98.8 F 101 22 154/72 93 01/15/17 07:53 01/15/17 07:53 01/15/17 07:53 01/15/17 07:53 01/15/17 07:53 General appearance: Present: cooperative, A&O X 3, pleasant, no acute distress, answers questions appropriately - Head Head exam: Present: atraumatic, normocephalic - Eye Eye exam: Present: PERRL, conjuntiva pink, sclera anicteric Pupils: Present: PERRL - Neck Neck exam general surgery: Present: supple, trachea midline. Absent: lymphadenopathy - Respiratory Respiratory exam: Present: rales, rhonchi - Cardiovascular Cardiovascular exam: Present: RRR, +S1, +S2. Absent: diastolic murmur, gallop, JVD, rubs, systolic murmur - GI/Abdominal GI/Abdominal exam: Present: normal bowel sounds, soft, no peritoneal signs. Absent: distended, tenderness - Extremities Exam Extremities exam: Present: warm, radial pulses palpable and symetrical. Absent : calf tenderness, cyanotic, pedal edema - Neurological Exam Neurological exam: Present: alert, CN II-XII intact, oriented X3, no focal deficits. Absent: pronater drift, facial droop, speech deficit - Skin Skin exam: Present: dry, intact Internal Medicine: Result - Labs CBC & Chem 7: 01/15/17 05:24 01/15/17 05:24 Labs: Short CBC 01/15/17 Range/Units 05:24 WBC 17.1 H (4.3-11.1) K/mcL Hgb 10.8 L (12.9-16.9) g/dL Hct 33.1 L (37.5-50.1) % Plt Count 273 (140-400) K/mcL Neutrophils # 14.7 H (1.6-8.9) K/mcL BMP 01/15/17 05:24 Sodium 135 L Potassium 4.0 Chloride 103 Carbon Dioxide 25 BUN 10 Creatinine 0.76 Glucose 91 Calcium 8.8 Cardiac Enzymes 01/14/17 01/15/17 Range/Units 23:50 05:24 Troponin I 0.89 H* 0.78 H* (0-0.03) ng/mL - ABG Interpretation ABG results: ABG ABG pH 7.39 pH Units (7.32-7.45) 01/14/17 19:34 ABG pCO2 48 mmHg (35-45) H 01/14/17 19:34 ABG pO2 69 mmHg (85-104) L 01/14/17 19:34 ABG O2 Saturation 93 % (95-98) L 01/14/17 19:34 PT/INR, D-dimer PT 13.3 Seconds (9.4-12.1) H 01/14/17 18:30 D-Dimer 1519 ng/mLFEU (0-500) H 01/14/17 18:30 - Impressions Impressions Chest CTA 01/15/17 01:09 IMPRESSION: 1. No evidence of pulmonary emboli. 2. Diffuse scattered patchy areas of consolidation with additional multiple small airspace and ground-glass nodular opacity. Overall findings are suspicious for multifocal pneumonia. D/ / 01/15/2017 07:08:47 Vick Correia MD / lorne Interpreting Provider: Vick Correia MD Consult Discharge Plan - Plan Referrals: Tulio Mora MD [Primary Care Provider] - 01/22/17 3:00 pm
[2017-01-15] MEDS: Azithromycin 250 MG TABLET PO SCH (12:51)
--- NOTE | 2017-01-15 13:51 | ECHO - Doppler Report ---
Echocardiogram Name: Finesse Dudley Date of Study: 01/15/2017 Date: 1935 Ht: 66.0 in Medical Record#: [id number] Age: 81 Wt: 110.0 lb Gender: Male BSA: 1.55 Order #: [id number] Location: [facility] Room #: 2A33 Reading Physician: Cristian Moffett DO, MARCO JORDAN FASNC Police Specialist: Vasquez Silveira RN Ordering Physician: Carolina Pham DO Primary Physician: Tulio Mora MD Indications: Elevated Troponin Impressions: LVEF 65-70%. Normal LV chamber size, wall thickness and function. Moderate left ventricular diastolic dysfunction. Normal right ventricular structure and function. Mild tricuspid regurgitation. Mild pulmonary hypertension. Estimated RVSP is 38 mmHg. Left Ventricular Wall Motion: Rest Echo Findings All wall segments showed normal motion. Findings: Study Quality * Technically adequate exam. ECG Findings * Normal sinus rhythm. Left Ventricle * LVEF 65-70%. * Normal LV chamber size, wall thickness and function. * Moderate left ventricular diastolic dysfunction. Right Ventricle * Normal right ventricular structure and function. Left Atrium * Mild to moderately dilated left atrium. Right Atrium * Mild to moderately dilated right atrium. Interatrial Septum * Interatrial septum not well evaluated. Aortic Valve * Trileaflet aortic valve. * Mildly calcified aortic valve leaflets. * Trace aortic regurgitation. * No aortic stenosis. Mitral Valve * Mildly thickened mitral valve leaflets. * No mitral regurgitation. * No mitral stenosis. Tricuspid Valve * Normal tricuspid valve structure. * Mild tricuspid regurgitation. * Mild pulmonary hypertension. * Estimated RVSP is 38 mmHg. * Estimated RA pressure is 5 mmHg. Pulmonic Valve * Normal pulmonic valve structure and function. * No pulmonic regurgitation. Aorta * Normally sized aortic root. Pericardium * The pericardium appears normal. IVC * Normal IVC dimensions and inspiratory collapse. Pulmonary Artery * Normal visualized portions of the main pulmonary artery. History Hypertension Hypercholesteremia Years 48 Packs 0.5 Family History of CAD History of CAD/PTCA 01/18/2015 a Previous Echo was performed. Measurements: BP: 154/ 72 2D Normal Values RVIDd: 2.60 cm <2.7 cm IVSd: 1.30 cm 0.6 - 1.0 cm LVIDd: 4.00 cm 3.7 - 5.6 cm LVPWd: 1.30 cm 0.6 - 1.1 cm LVIDs: 2.90 cm 1.5 - 3.6 cm LA: 3.40 cm 2.0 - 4.0cm %FS: 27.50 cm >25 % LVOT Diam: 2.00 cm LA volume: 70 Mitral Valve Peak E:.85 m/sec Peak A:.70 m/sec E/A Ratio:1.2 Peak E' Lat Benjamin:11.3 cm/s Peak E' Med Benjamin:9.55 cm/s E/E' Lat Ratio:7.6 E/E' Med Ratio:8.9 Aortic Valve AI pressure Half-time: 350.00 msec Tricuspid Valve TV Regurg Peak Grad: 33.00mmHg TV Regurg Peak Benjamin: 2.86m/sec Updated by Cristian Moffett DO, FACSveta, TRACI LARA on 01/15/2017 1:43:35 PM electronically signed on 01/15/2017 1:45:06 PM with status of Final Wall Motion Alanis: 1=Normal, 2=Hypokinesis, 3=Akinesis, 4=Dyskinesis, 5=Aneurysmal, 6=Hyperkinetic, X=Not Visualized (Blank)=Missing
[2017-01-15 13:53] LABS: Adenovirus Not Detected (Not Detect); Bordetella Pertussis Not Detected (Not Detect); Chlamydophila pneumoniae Not Detected (Not Detect); Coronavirus 229E Not Detected (Not Detect); Coronavirus HKU1 Not Detected (Not Detect); Coronavirus NL63 Not Detected (Not Detect); Coronavirus OC43 Not Detected (Not Detect); Human Metapneumovirus Not Detected (Not Detect); Human Rhinovirus/Enterovirus ***DETECTED*** (Not Detect); Influenza A Subtype 2009 H1 Not Detected (Not Detect); Influenza A Untypeable Not Detected (Not Detect); Influenza B Not Detected (Not Detect); Mycoplasma pneumoniae Not Detected (Not Detect); Parainfluenza Virus 1 Not Detected (Not Detect); Parainfluenza Virus 2 Not Detected (Not Detect); Parainfluenza Virus 3 Not Detected (Not Detect); Parainfluenza Virus 4 Not Detected (Not Detect); Respiratory Syncytial Virus Not Detected (Not Detect)
--- NOTE | 2017-01-15 17:21 | Electrocardiograph Report ---
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
[2017-01-15] MEDS ORDERED: Levofloxacin 750 MG/150 ML 750 MG/150 ML BAG IVPB SCH (20:00)
[2017-01-16] MEDS ORDERED: Vancomycin 1,000 MG in D5% in Water 250 ML IVPB SCH (01:00)
--- NOTE | 2017-01-16 06:34 | Electrocardiograph Report ---
[address] [place], [place] [address] Test Date: 2017-01-14 Pat Name: Finesse Dudley Department: 104 Room: 2NE32 Gender: M [employer]: : 1935 Requested By: Omid Fairchild Order Number: [id number] Reading MD: Xavi Rollins MD Measurements Intervals [place] Rate: 121 P: 151 NE: 144 QRS: -88 QRSD: 122 T: 156 QT: 298 QTc: 370 Interpretive Statements ECTOPIC ATRIAL TACHYCARDIA RIGHT BUNDLE BRANCH BLOCK PROBABLY ACUTE LATERAL MYOCARDIAL INFARCTION Electronically Signed On 01-16-2017 6:32:23 EDT by Xavi Rollins MD
[2017-01-16] MEDS: *HR* Heparin 5,000 UNIT/ML VIAL SQ SCH ×2 (06:37→17:40)
[2017-01-16] MEDS: Piperacillin/Tazobactam 3.375 GM in D5% in Water (Mini-Bag+) 100 ML IVPB SCH ×2 (09:23→15:50)
[2017-01-16] MEDS: Gabapentin 400 MG CAPSULE PO SCH ×3 (09:24→22:04)
[2017-01-16] MEDS: Finasteride 5 MG TABLET PO SCH (09:25)
[2017-01-16] MEDS: Magnesium Oxide 400 MG TABLET PO SCH (09:25)
[2017-01-16] MEDS: dilTIAZem HCl 60 MG TABLET PO SCH ×2 (09:25→21:39)
[2017-01-16] MEDS: Azithromycin 250 MG TABLET PO SCH (13:42)
--- NOTE | 2017-01-16 16:01 | Internal Med Progress Note ---
Date of Encounter: 01/16/17 Time of Encounter: 07:45 - Assessment and plan (1) Acute respiratory failure with hypoxia Current Visit: Yes Status: Acute Assessment and plan: Seems to be doing somewhat better overall. Continue supportive care and wean oxygen as able. (2) Sepsis Current Visit: Yes Status: Acute Assessment and plan: No further fever. Respiratory panel positive for rhinovirus. Currently on IV abx. Will begin to scale down as this may be multifocal pneumonia that is viral. Qualifiers: Sepsis type: sepsis due to unspecified organism Qualified Code(s): A41.9 - Sepsis, unspecified organism (3) Pneumonia Current Visit: Yes Status: Acute Assessment and plan: Multifocal in nature. Most likely viral or atypical. Continue supportive care. Will begin to scale down abx. Qualifiers: Pneumonia type: due to unspecified organism Laterality: bilateral Lung location: unspecified part of lung Qualified Code(s): J18.9 - Pneumonia, unspecified organism (4) Hypertension Current Visit: Yes Status: Chronic Assessment and plan: Controlled, continue home meds Qualifiers: Hypertension type: essential hypertension Qualified Code(s): I10 - Essential (primary) hypertension (5) CAD (coronary artery disease) Current Visit: Yes Status: Chronic Assessment and plan: Chronic. Appreciate cardiology input. Qualifiers: Coronary Disease-Associated Artery/Lesion type: [place] artery [place] vs. transplanted heart: [place] heart Associated angina: without angina Qualified Code(s): I25.10 - Atherosclerotic heart disease of [place] coronary artery without angina pectoris (6) Head and neck cancer Current Visit: No Status: Chronic - Subjective Interval history: Mr. Dudley is currently admitted for sepsis and acute hypoxic resp failure. He is moderate to high risk due to potential for worsening respiratory status. Mr. Dudley is eating breakfast. He is still having a lot of chest congestion and cough. No fever. No diarrhea. at bedside. He says he is starting to feel a little better. - Constitutional Vitals: Temp Pulse Resp BP Pulse Ox 98.5 F 99 16 166/84 95 01/16/17 15:00 01/16/17 15:00 01/16/17 15:00 01/16/17 15:00 01/16/17 15:00 General appearance: Present: cooperative, A&O X 3, pleasant, answers questions appropriately - Head Head exam: Present: normocephalic - Eye Eye exam: Present: EOMI, conjuntiva pink - ENT ENT exam: Present: mucous membranes dry - Respiratory Respiratory exam: Present: prolonged expiratory phase, rhonchi Additional comments: Rhonchi heard bilaterally but worse in upper lobes in front. No wheeze. - Cardiovascular Cardiovascular exam: Present: RRR. Absent: tachycardia - GI/Abdominal GI/Abdominal exam: Present: soft. Absent: tenderness - Extremities Exam Extremities exam: Present: pedal edema, warm. Absent: tenderness - Neurological Exam Neurological exam: Present: alert, oriented X3 - Psychiatric Psychiatric exam: Present: normal affect, normal mood - Skin Skin exam: Present: warm. Absent: rash Internal Medicine: Result - Labs CBC & Chem 7: 01/15/17 05:24 01/15/17 05:24 - ABG Interpretation ABG results: ABG ABG pH 7.39 pH Units (7.32-7.45) 01/14/17 19:34 ABG pCO2 48 mmHg (35-45) H 01/14/17 19:34 ABG pO2 69 mmHg (85-104) L 01/14/17 19:34 ABG O2 Saturation 93 % (95-98) L 01/14/17 19:34 PT/INR, D-dimer PT 13.3 Seconds (9.4-12.1) H 01/14/17 18:30 D-Dimer 1519 ng/mLFEU (0-500) H 01/14/17 18:30 - Impressions Impressions Chest CTA 01/15/17 01:09 IMPRESSION: 1. No evidence of pulmonary emboli. 2. Diffuse scattered patchy areas of consolidation with additional multiple small airspace and ground-glass nodular opacity. Overall findings are suspicious for multifocal pneumonia. D/ / 01/15/2017 07:08:47 Vick Correia MD / lorne Interpreting Provider: Vick Correia MD Consult Discharge Plan - Plan Referrals: Tulio Mora MD [Primary Care Provider] - 01/22/17 3:00 pm
[2017-01-16] MEDS ORDERED: Levofloxacin 750 MG/150 ML 750 MG/150 ML BAG IVPB SCH (21:00)
[2017-01-17] MEDS: Piperacillin/Tazobactam 3.375 GM in D5% in Water (Mini-Bag+) 100 ML IVPB SCH ×4 (00:45→23:21)
[2017-01-17 01:23] LABS: Hematocrit 29.1 % (37.5-50.1); Hemoglobin 9.7 g/dL (12.9-16.9); Mean Corpuscular HGB Conc 33.3 g/dL (31.6-35.5); Mean Corpuscular Hemoglobin 28.7 pg (28.0-33.3); Mean Corpuscular Volume 86.1 fL (83.0-100.0); Mean Platelet Volume 10.4 fL (9.4-12.4); Platelet Count 268 K/mcL (140-400); Red Blood Count 3.38 M/mcL (4.19-5.50); Red Cell Distribution Width 12.4 % (11.5-14.5)
[2017-01-17 01:37] LABS: BUN/Creatinine Ratio 11 (6-26); Blood Urea Nitrogen 7 mg/dL (8-26); Calcium 8.2 mg/dL (8.6-10.8); Carbon Dioxide 27 mEq/L (19-29); Chloride 95 mEq/L (98-109); Glucose 107 mg/dL (70-99); Magnesium 1.7 mg/dL (1.6-2.6); Osmolality,Calculated 268 (280-300); Potassium 3.7 mEq/L (3.5-4.5); Sodium 130 mEq/L (136-145); eGFR For African Americans > 60 (> 60); eGFR For Non-African Americans > 60 (> 60)
[2017-01-17] MEDS: Vancomycin 1,000 MG in D5% in Water 250 ML IVPB SCH ×2 (02:33→14:00)
[2017-01-17] MEDS: *HR* Heparin 5,000 UNIT/ML VIAL SQ SCH ×2 (06:19→17:57)
[2017-01-17] MEDS ORDERED: *HR* HYDROcodone/Acet 7.5/325 mg TABLET PO PRN (07:40)
[2017-01-17] MEDS ORDERED: Aminoglycoside Consult 1 EACH MC ONE (08:49)
[2017-01-17] MEDS: Magnesium Oxide 400 MG TABLET PO SCH (09:28)
[2017-01-17] MEDS: Finasteride 5 MG TABLET PO SCH (09:28)
[2017-01-17] MEDS: Gabapentin 400 MG CAPSULE PO SCH ×3 (09:28→21:23)
[2017-01-17] MEDS: dilTIAZem HCl 60 MG TABLET PO SCH ×2 (09:28→21:15)
[2017-01-17] MEDS: Azithromycin 250 MG TABLET PO SCH (12:50)
[2017-01-17] MEDS: GuaiFENesin Liq 200 MG/10 ML UDC PO SCH ×3 (12:50→23:21)
--- NOTE | 2017-01-17 15:14 | Internal Med Progress Note ---
Date of Encounter: 01/17/17 Time of Encounter: 07:45 - Assessment and plan (1) Acute respiratory failure with hypoxia Current Visit: Yes Status: Acute Assessment and plan: Doing a little better today. Less congestion noted. No fever. Still on supplemental oxygen. (2) Sepsis Current Visit: Yes Status: Acute Assessment and plan: Tolerating IV abx. Slowly seems to be improving. No new issues. Qualifiers: Sepsis type: sepsis due to unspecified organism Qualified Code(s): A41.9 - Sepsis, unspecified organism (3) Pneumonia Current Visit: Yes Status: Acute Assessment and plan: Multifocal in nature. Most likely viral or atypical. Supportive care. Qualifiers: Pneumonia type: due to unspecified organism Laterality: bilateral Lung location: unspecified part of lung Qualified Code(s): J18.9 - Pneumonia, unspecified organism (4) Hypertension Current Visit: Yes Status: Chronic Assessment and plan: Controlled, continue home meds Qualifiers: Hypertension type: essential hypertension Qualified Code(s): I10 - Essential (primary) hypertension (5) CAD (coronary artery disease) Current Visit: Yes Status: Chronic Assessment and plan: Chronic. Appreciate cardiology input. Qualifiers: Coronary Disease-Associated Artery/Lesion type: [place] artery [place] vs. transplanted heart: [place] heart Associated angina: without angina Qualified Code(s): I25.10 - Atherosclerotic heart disease of [place] coronary artery without angina pectoris (6) Head and neck cancer Current Visit: No Status: Chronic - Subjective Interval history: Mr. Dudley is currently admitted for sepsis and acute hypoxic resp failure. He is moderate to high risk due to potential for worsening respiratory status. Mr. Dudley is up to bathroom. He appears to have less cough. No fever or chills. No GI symptoms. Not sleeping well in bed. Family feels he may need rehab. - Constitutional Vitals: Temp Pulse Resp BP Pulse Ox 97.8 F 100 18 165/78 96 01/17/17 10:50 01/17/17 10:50 01/17/17 10:50 01/17/17 10:50 01/17/17 10:50 General appearance: Present: cooperative, A&O X 3, pleasant, answers questions appropriately - Head Head exam: Present: normocephalic - Eye Eye exam: Present: conjuntiva pink - ENT ENT exam: Present: mucous membranes dry - Respiratory Respiratory exam: Present: rhonchi, wheezes - Cardiovascular Cardiovascular exam: Present: RRR. Absent: tachycardia - GI/Abdominal GI/Abdominal exam: Present: soft. Absent: tenderness - Extremities Exam Extremities exam: Present: warm. Absent: pedal edema - Neurological Exam Neurological exam: Present: alert, oriented X3, no focal deficits - Skin Skin exam: Present: warm. Absent: rash Internal Medicine: Result - Labs CBC & Chem 7: 01/17/17 00:59 01/17/17 00:59 Labs: Short CBC 01/17/17 Range/Units 00:59 WBC 12.5 H (4.3-11.1) K/mcL Hgb 9.7 L (12.9-16.9) g/dL Hct 29.1 L (37.5-50.1) % Plt Count 268 (140-400) K/mcL BMP 01/17/17 00:59 Sodium 130 L Potassium 3.7 Chloride 95 L Carbon Dioxide 27 BUN 7 L Creatinine 0.61 L Glucose 107 H Calcium 8.2 L - ABG Interpretation ABG results: ABG ABG pH 7.39 pH Units (7.32-7.45) 01/14/17 19:34 ABG pCO2 48 mmHg (35-45) H 01/14/17 19:34 ABG pO2 69 mmHg (85-104) L 01/14/17 19:34 ABG O2 Saturation 93 % (95-98) L 01/14/17 19:34 PT/INR, D-dimer PT 13.3 Seconds (9.4-12.1) H 01/14/17 18:30 D-Dimer 1519 ng/mLFEU (0-500) H 01/14/17 18:30 Consult Discharge Plan - Plan Referrals: Tulio Mora MD [Primary Care Provider] - 01/22/17 3:00 pm
[2017-01-17] MEDS: Ipratropium/Albuterol Neb 3 ML IH SCH ×2 (16:07→22:09)
[2017-01-18] MEDS: Vancomycin 1,000 MG in D5% in Water 250 ML IVPB SCH (02:51)
[2017-01-18] MEDS: Ipratropium/Albuterol Neb 3 ML IH SCH ×4 (03:58→21:27)
[2017-01-18 04:58] LABS: BUN/Creatinine Ratio 8 (6-26); Calcium 8.4 mg/dL (8.6-10.8); Carbon Dioxide 28 mEq/L (19-29); Chloride 94 mEq/L (98-109); Glucose 125 mg/dL (70-99); Osmolality,Calculated 267 (280-300); Potassium 3.3 mEq/L (3.5-4.5); Sodium 129 mEq/L (136-145); eGFR For African Americans > 60 (> 60); eGFR For Non-African Americans > 60 (> 60)
[2017-01-18 04:59] LABS: Blood Urea Nitrogen 5 mg/dL (8-26); Hematocrit 30.2 % (37.5-50.1); Hemoglobin 9.9 g/dL (12.9-16.9); Mean Corpuscular HGB Conc 32.8 g/dL (31.6-35.5); Mean Corpuscular Hemoglobin 28.1 pg (28.0-33.3); Mean Corpuscular Volume 85.8 fL (83.0-100.0); Mean Platelet Volume 10.3 fL (9.4-12.4); Platelet Count 273 K/mcL (140-400); Red Blood Count 3.52 M/mcL (4.19-5.50); Red Cell Distribution Width 12.4 % (11.5-14.5)
[2017-01-18] MEDS: GuaiFENesin Liq 200 MG/10 ML UDC PO SCH ×4 (06:16→17:11)
[2017-01-18] MEDS: *HR* Heparin 5,000 UNIT/ML VIAL SQ SCH ×2 (06:16→17:11)
--- NOTE | 2017-01-18 09:16 | Pulmonology Consult Note ---
Date of Encounter: 01/18/17 Time of Encounter: 09:14 Assessment and Plan (1) Acute respiratory failure with hypoxia Current Visit: Yes Status: Acute Acute respiratory failure with hypoxia this individual is due to multifocal pneumonia(likely community-acquired, possibly aspiration events) and emphysema. Aside from completion of an 8 day course of antibiotic therapy, I recommend use of DuoNeb nebulized treatments in the home setting. Acceptable oxygen saturation goal of 88%. Reviewed my impressions and recommendations with the patient. Please call if you have any questions. Lance Aguilar [phone] Code(s): J96.01 - Acute respiratory failure with hypoxia SNOMED Code(s): 68081122, 293859499 History of Present Illness Consult date: 01/18/17 Chief complaint: Dyspnea, cough History of present illness: This 81-year-old male, former cigarette smoker of approximately [id number] intensity (having stopped approximately 15-18 years ago) with a history of head and neck cancer was admitted to the hospital on the with complaints of cough, sputum production, breathlessness fever and possibly chills. Per the primary service, the patient was thought to have pneumonia received antibiotic therapy and has noted a significant improvement of his respiratory and functional status. Furthermore, the patient seemingly has noted very nice response to bronchodilator therapy given significant reduction of breathlessness and cough with this medical intervention as well. This morning, the patient feels to the point where he is requesting discharge from the hospital. Past Med Surg Social Fam HX - Past Medical History Medical history: cancer, coronary artery disease, hypertension Psychiatric history: no psych history - Past Surgical History Surgical History: angioplasty/stent (LAD BMS x3 in 2011), appendectomy, carotid endarterectomy (Right, with angioplasty) - Social History Smoking Status: Never smoker Smokeless Tobacco Status: No Alcohol use: none Drug use: none - Family History Father Living Status: Age at : 92 Cause of : Age Mother Name: Zulema Matos Living Status: Age at : 74 Cause of : pneumonia Hx Family Cardiac Disorders: Yes Medications and Allergies Cholecalciferol (Vitamin D3) [Vitamin D] 2,000 unit PO DAILY 07/23/15 [History] Finasteride [Proscar] 5 mg PO DAILY 07/23/15 [History] Tamsulosin [Flomax] 0.8 mg PO DAILY 07/23/15 [History] Alprazolam [Xanax 0.5 MG Tablet] 0.5 mg PO HS 01/14/17 [History] Diltiazem [Cardizem] 60 mg PO BID 01/14/17 [History] Ferrous Sulfate 325 mg PO DAILY 01/14/17 [History] Folic Acid 0.8 mg PO DAILY 01/14/17 [History] Gabapentin [Neurontin] 1,600 mg PO HS 01/14/17 [History] Gabapentin [Neurontin] 800 mg PO BID 01/14/17 [History] HYDROcodone/Acet 7.5/325 mg [[place] 7.5-325 mg] 1 tab PO QID PRN 01/14/17 [ History] Losartan Potassium [Cozaar] 100 mg PO DAILY PRN 01/14/17 [History] Magnesium Oxide [Magnesium] 400 mg PO DAILY 01/14/17 [History] Pravastatin Sodium [Pravachol] 40 mg PO HS 01/14/17 [History] Ubidecarenone [Co Q-10] 200 mg PO DAILY 01/14/17 [History] Vitamin E Acid Succinate [Vitamin E] 400 units PO DAILY 01/14/17 [History] Allergies No Known Allergies Allergy (Verified 07/18/15 10:18) All Systems: A 10-system review of systems was performed and is negative for pertinent findings except as documented above in the HPI. - Constitutional Constitutional: as per HPI - Respiratory Respiratory: as per HPI Physical Examination Vital Signs: Vital Signs, Last 4 Hours Temp Pulse Resp BP Pulse Ox 01/18/17 07:11 98.2 F 99 18 157/82 95 Eyes: nonicteric Auscultation: bilateral: diminished breath sounds, other (Crackles were noted predominantly over the right base greater than left base.) Gastrointestinal: normoactive bowel sounds Extremities: no cyanosis Musculoskeletal: no deformities normal mental status, non-focal exam Results - Laboratory Findings CBC and BMP: 01/18/17 04:28 01/18/17 04:28 ABG ABG pH 7.39 pH Units (7.32-7.45) 01/14/17 19:34 ABG pCO2 48 mmHg (35-45) H 01/14/17 19:34 ABG pO2 69 mmHg (85-104) L 01/14/17 19:34 ABG O2 Saturation 93 % (95-98) L 01/14/17 19:34 PT/INR, D-dimer PT 13.3 Seconds (9.4-12.1) H 01/14/17 18:30 D-Dimer 1519 ng/mLFEU (0-500) H 01/14/17 18:30 Abnormal lab findings: Abnormal lab results RBC 3.52 M/mcL (4.19-5.50) L 01/18/17 04:28 Hgb 9.9 g/dL (12.9-16.9) L 01/18/17 04:28 Hct 30.2 % (37.5-50.1) L 01/18/17 04:28 Neutrophils # 14.7 K/mcL (1.6-8.9) H 01/15/17 05:24 PT 13.3 Seconds (9.4-12.1) H 01/14/17 18:30 D-Dimer 1519 ng/mLFEU (0-500) H 01/14/17 18:30 ABG pCO2 48 mmHg (35-45) H 01/14/17 19:34 ABG pO2 69 mmHg (85-104) L 01/14/17 19:34 ABG HCO3 29.1 mEQ/L (21-27) H 01/14/17 19:34 ABG Total CO2 30.6 mEq/L (20-26) H 01/14/17 19:34 ABG O2 Saturation 93 % (95-98) L 01/14/17 19:34 ABG Base Excess 3.5 mEq/L (-2.0 to 3.0) H 01/14/17 19:34 Sodium 129 mEq/L (136-145) L 01/18/17 04:28 Potassium 3.3 mEq/L (3.5-4.5) L 01/18/17 04:28 Chloride 94 mEq/L (98-109) L 01/18/17 04:28 BUN 5 mg/dL (8-26) L 01/18/17 04:28 Creatinine 0.66 mg/dL (0.72-1.25) L 01/18/17 04:28 Glucose 125 mg/dL (70-99) H 01/18/17 04:28 POC Glucose 133 (58-89) H 01/14/17 18:29 Calculated Osmolality 267 (280-300) L 01/18/17 04:28 Calcium 8.4 mg/dL (8.6-10.8) L 01/18/17 04:28 Phosphorus 2.2 mg/dL (2.3-4.7) L 01/14/17 18:30 Troponin I 0.78 ng/mL (0-0.03) H* 01/15/17 05:24 C-Reactive Protein 102 mg/L (Less than 5) H 01/15/17 05:24 Albumin 2.9 g/dL (3.5-5.0) L 01/14/17 18:30 Albumin/Globulin Ratio 0.8 (1.1-2.2) L 01/14/17 18:30 HDL Cholesterol 27 mg/dL (40-59) L 01/15/17 05:24 Urine Bilirubin Small (Negative) H 01/14/17 19:14 Ur Squamous Epith Cells Many per lpf (None-Few) H 01/14/17 19:14 Vancomycin Trough 2.3 mcg/mL (10-20) L 01/17/17 00:59 Entero/Rhino (PCR) DETECTED (Not Detect) A 01/15/17 12:28 - Microbiology Findings Microbiology Findings: Microbiology, Last 48 Hours 01/14/17 23:50 Sputum Culture - Final Sputum - Diagnostic Findings Chest x-ray: image reviewed (The CT scan of the chest reveals upper lobe emphysematous changes and patchy densities throughout lung zones bilaterally but more pronounced in the lower lobes.) - Clinical Findings Intake & Output: Intake & Output 01/17/17 01/18/17 01/18/17 23:59 07:59 15:59 Intake Total 100 / 100 450 / 450 360 / 360 Output Total 0 / 0 300 / 300 Balance 100 / 100 150 / 150 360 / 360 Weight 56.8 kg Consult Discharge Plan - Plan Referrals: Tulio Mora MD [Primary Care Provider] - 01/22/17 3:00 pm
[2017-01-18] MEDS: Magnesium Oxide 400 MG TABLET PO SCH ×3 (09:58→16:18)
[2017-01-18] MEDS: dilTIAZem HCl 60 MG TABLET PO SCH ×2 (09:58→21:25)
[2017-01-18] MEDS: Piperacillin/Tazobactam 3.375 GM in D5% in Water (Mini-Bag+) 100 ML IVPB SCH ×3 (09:59→21:32)
[2017-01-18] MEDS: Finasteride 5 MG TABLET PO SCH (10:00)
[2017-01-18] MEDS: Gabapentin 400 MG CAPSULE PO SCH ×3 (10:00→21:24)
[2017-01-18] MEDS: Azithromycin 250 MG TABLET PO SCH (12:16)
--- NOTE | 2017-01-18 19:49 | Internal Med Progress Note ---
Date of Encounter: 01/18/17 Time of Encounter: 14:00 - Assessment and plan (1) Acute respiratory failure with hypoxia Current Visit: Yes Status: Acute Assessment and plan: Continues to slowly improve. Would benefit from nebulizer at home. (2) Sepsis Current Visit: Yes Status: Acute Assessment and plan: Tolerating IV abx. Slowly improving. Qualifiers: Sepsis type: sepsis due to unspecified organism Qualified Code(s): A41.9 - Sepsis, unspecified organism (3) Pneumonia Current Visit: Yes Status: Acute Assessment and plan: Multifocal in nature. Most likely viral or atypical. Needs to complete course of Abx - ? PO with Augmentin Qualifiers: Pneumonia type: due to unspecified organism Laterality: bilateral Lung location: unspecified part of lung Qualified Code(s): J18.9 - Pneumonia, unspecified organism (4) Hypertension Current Visit: Yes Status: Chronic Assessment and plan: Controlled, continue home meds Qualifiers: Hypertension type: essential hypertension Qualified Code(s): I10 - Essential (primary) hypertension (5) CAD (coronary artery disease) Current Visit: Yes Status: Chronic Assessment and plan: Chronic. Appreciate cardiology input. Qualifiers: Coronary Disease-Associated Artery/Lesion type: [place] artery [place] vs. transplanted heart: [place] heart Associated angina: without angina Qualified Code(s): I25.10 - Atherosclerotic heart disease of [place] coronary artery without angina pectoris (6) Head and neck cancer Current Visit: No Status: Chronic - Subjective Interval history: Mr. Dudley is currently admitted for sepsis and acute hypoxic resp failure. He is moderate to high risk due to potential for worsening respiratory status. Mr. Dudley is resting comfortably. Denies new issues. His breathing is somewhat better. No fever or chills. No GI symptoms. - Constitutional Vitals: Temp Pulse Resp BP Pulse Ox 98.1 F 102 18 104/53 97 01/18/17 15:05 01/18/17 17:23 01/18/17 17:23 01/18/17 17:23 01/18/17 17:23 General appearance: Present: cooperative, A&O X 3, pleasant, answers questions appropriately - Head Head exam: Present: normocephalic - Eye Eye exam: Present: conjuntiva pink - ENT ENT exam: Present: mucous membranes moist - Respiratory Respiratory exam: Present: rhonchi, wheezes - Cardiovascular Cardiovascular exam: Present: RRR. Absent: tachycardia - GI/Abdominal GI/Abdominal exam: Present: soft. Absent: tenderness - Extremities Exam Extremities exam: Present: warm. Absent: pedal edema, tenderness - Neurological Exam Neurological exam: Present: alert, oriented X3, no focal deficits - Psychiatric Psychiatric exam: Present: normal affect, normal mood - Skin Skin exam: Present: warm. Absent: rash Internal Medicine: Result - Labs CBC & Chem 7: 01/18/17 04:28 01/18/17 04:28 Labs: Short CBC 01/18/17 Range/Units 04:28 WBC 10.5 (4.3-11.1) K/mcL Hgb 9.9 L (12.9-16.9) g/dL Hct 30.2 L (37.5-50.1) % Plt Count 273 (140-400) K/mcL BMP 01/18/17 04:28 Sodium 129 L Potassium 3.3 L Chloride 94 L Carbon Dioxide 28 BUN 5 L Creatinine 0.66 L Glucose 125 H Calcium 8.4 L - ABG Interpretation ABG results: ABG ABG pH 7.39 pH Units (7.32-7.45) 01/14/17 19:34 ABG pCO2 48 mmHg (35-45) H 01/14/17 19:34 ABG pO2 69 mmHg (85-104) L 01/14/17 19:34 ABG O2 Saturation 93 % (95-98) L 01/14/17 19:34 PT/INR, D-dimer PT 13.3 Seconds (9.4-12.1) H 01/14/17 18:30 D-Dimer 1519 ng/mLFEU (0-500) H 01/14/17 18:30 Consult Discharge Plan - Plan Referrals: Tulio Mora MD [Primary Care Provider] - 01/22/17 3:00 pm
[2017-01-19] MEDS: GuaiFENesin Liq 200 MG/10 ML UDC PO SCH ×4 (00:14→18:06)
[2017-01-19] MEDS: Ipratropium/Albuterol Neb 3 ML IH SCH ×4 (04:36→22:42)
[2017-01-19] MEDS: Piperacillin/Tazobactam 3.375 GM in D5% in Water (Mini-Bag+) 100 ML IVPB SCH (05:54)
[2017-01-19] MEDS: *HR* Heparin 5,000 UNIT/ML VIAL SQ SCH ×2 (05:58→18:05)
[2017-01-19 06:57] LABS: Hematocrit 31.2 % (37.5-50.1); Hemoglobin 10.5 g/dL (12.9-16.9); Mean Corpuscular HGB Conc 33.7 g/dL (31.6-35.5); Mean Corpuscular Volume 86.2 fL (83.0-100.0); Mean Platelet Volume 10.6 fL (9.4-12.4); Platelet Count 309 K/mcL (140-400); Red Blood Count 3.62 M/mcL (4.19-5.50); Red Cell Distribution Width 12.5 % (11.5-14.5)
[2017-01-19] MEDS: Magic Mouthwash 10 ML UD Cup PO SCH ×3 (06:58→18:05)
[2017-01-19 07:11] LABS: BUN/Creatinine Ratio 7 (6-26); Calcium 8.9 mg/dL (8.6-10.8); Carbon Dioxide 29 mEq/L (19-29); Chloride 95 mEq/L (98-109); Glucose 100 mg/dL (70-99); Osmolality,Calculated 271 (280-300); Potassium 3.3 mEq/L (3.5-4.5); Sodium 132 mEq/L (136-145); eGFR For African Americans > 60 (> 60); eGFR For Non-African Americans > 60 (> 60)
[2017-01-19 07:12] LABS: Blood Urea Nitrogen 5 mg/dL (8-26)
[2017-01-19] MEDS: dilTIAZem HCl 60 MG TABLET PO SCH ×2 (10:09→20:36)
[2017-01-19] MEDS: Finasteride 5 MG TABLET PO SCH ×2 (10:09→10:20)
[2017-01-19] MEDS: Magnesium Oxide 400 MG TABLET PO SCH (10:09)
[2017-01-19] MEDS: Gabapentin 400 MG CAPSULE PO SCH ×4 (10:11→20:38)
--- NOTE | 2017-01-19 14:00 | Internal Med Progress Note ---
Date of Encounter: 01/19/17 Time of Encounter: 13:56 - Assessment and plan (1) Pneumonia Current Visit: Yes Status: Acute Assessment and plan: Multifocal in nature. Most likely viral or atypical. Needs to complete course of Abx - ? PO with Augmentin 01/19/2017. Today is my first visit/encounter with the patient Likely community-acquired pneumonia, component of aspiration cannot be ruled out. Patient does have COPD. he is admitted with pneumonia and presently on day 5 of antibiotics. Noted that patient was reviewed by pulmonary. The recommendation from pulmonary is to continue antibiotics total of 8 days. We will continue antibiotics. Qualifiers: Pneumonia type: due to unspecified organism Laterality: bilateral Lung location: unspecified part of lung Qualified Code(s): J18.9 - Pneumonia, unspecified organism (2) Hypertension Current Visit: Yes Status: Chronic Assessment and plan: Although it noted that patient's blood pressure was elevated. Average systolic blood pressure was about 180 Average diastolic blood pressure was about 95 Patient's average heart rate is around 85 Patient is presently on Cardizem 60 mg twice a day. Plan we will increase his Cardizem to 90 mg twice a day. Close observation. Qualifiers: Hypertension type: essential hypertension Qualified Code(s): I10 - Essential (primary) hypertension (3) CAD (coronary artery disease) Current Visit: Yes Status: Chronic Assessment and plan: Chronic. Appreciate cardiology input. Qualifiers: Coronary Disease-Associated Artery/Lesion type: [place] artery [place] vs. transplanted heart: [place] heart Associated angina: without angina Qualified Code(s): I25.10 - Atherosclerotic heart disease of [place] coronary artery without angina pectoris (4) DVT prophylaxis Current Visit: Yes Status: Acute Assessment and plan: EPCD Medical decision making: This patient has a moderate to severe risk of worsening in spite of being on appropriate treatment as he has a complex cardiac /respiratory issues - Subjective Interval history: Patient seen and examined. Chart reviewed. Patient is comfortably lying in the bed. Patient's family at bedside. Patient's and son sitting next to him. Patient has occasional dizziness. Patient denies chest pain, shortness of breath, diaphoresis, vomiting and diarrhea. - Constitutional Vitals: Temp Pulse Resp BP Pulse Ox 98.3 F 91 14 164/91 98 01/19/17 04:00 01/19/17 07:00 01/19/17 07:00 01/19/17 07:00 01/19/17 10:25 General appearance: Present: cooperative, A&O X 3, pleasant, answers questions appropriately - Head Head exam: Present: atraumatic, normocephalic - Eye Eye exam: Present: PERRL, conjuntiva pink, sclera anicteric Pupils: Present: PERRL - Neck Neck exam general surgery: Present: supple, trachea midline. Absent: lymphadenopathy - Respiratory Respiratory exam: Present: CTAB. Absent: accessory muscle use, rales, rhonchi, wheezes - Cardiovascular Cardiovascular exam: Present: RRR, +S1, +S2. Absent: diastolic murmur, gallop, rubs, systolic murmur - GI/Abdominal GI/Abdominal exam: Present: normal bowel sounds, soft, no peritoneal signs. Absent: distended, tenderness - Extremities Exam Extremities exam: Present: warm, radial pulses palpable and symetrical. Absent : calf tenderness, cyanotic, pedal edema - Neurological Exam Neurological exam: Present: CN II-XII intact, oriented X3, no focal deficits. Absent: pronater drift, facial droop, speech deficit - Skin Skin exam: Present: dry, intact Internal Medicine: Result - Labs CBC & Chem 7: 01/19/17 06:31 01/19/17 06:31 Labs: Short CBC 01/19/17 Range/Units 06:31 WBC 10.3 (4.3-11.1) K/mcL Hgb 10.5 L (12.9-16.9) g/dL Hct 31.2 L (37.5-50.1) % Plt Count 309 (140-400) K/mcL BMP 01/19/17 06:31 Sodium 132 L Potassium 3.3 L Chloride 95 L Carbon Dioxide 29 BUN 5 L Creatinine 0.71 L Glucose 100 H Calcium 8.9 - ABG Interpretation ABG results: ABG ABG pH 7.39 pH Units (7.32-7.45) 01/14/17 19:34 ABG pCO2 48 mmHg (35-45) H 01/14/17 19:34 ABG pO2 69 mmHg (85-104) L 01/14/17 19:34 ABG O2 Saturation 93 % (95-98) L 01/14/17 19:34 PT/INR, D-dimer PT 13.3 Seconds (9.4-12.1) H 01/14/17 18:30 D-Dimer 1519 ng/mLFEU (0-500) H 01/14/17 18:30 Consult Discharge Plan - Plan Referrals: Tulio Mora MD [Primary Care Provider] - 01/22/17 3:00 pm
[2017-01-19] MEDS ORDERED: Benzonatate 100 MG CAPSULE PO PRN (17:56)
[2017-01-20] MEDS: Ipratropium/Albuterol Neb 3 ML IH SCH ×3 (04:48→15:12)
[2017-01-20] MEDS: *HR* Heparin 5,000 UNIT/ML VIAL SQ SCH (05:50)
[2017-01-20] MEDS: Magic Mouthwash 10 ML UD Cup PO SCH ×2 (08:55→13:42)
[2017-01-20] MEDS: Finasteride 5 MG TABLET PO SCH (08:55)
[2017-01-20] MEDS: Gabapentin 400 MG CAPSULE PO SCH ×2 (08:55→13:42)
[2017-01-20] MEDS: dilTIAZem HCl 60 MG TABLET PO SCH (08:55)
[2017-01-20] MEDS: Magnesium Oxide 400 MG TABLET PO SCH (08:56)
[2017-01-20 15:35] VITALS: BP 165/78
--- NOTE | 2017-01-20 16:13 | Discharge Summary ---
Date of Encounter: 01/20/17 Time of Encounter: 16:10 - Discharge Diagnosis (1) Pneumonia Priority: Primary Status: Acute Qualifiers: Pneumonia type: due to unspecified organism Laterality: bilateral Lung location: unspecified part of lung Qualified Code(s): J18.9 - Pneumonia, unspecified organism (2) Hypertension Priority: Secondary Status: Chronic Qualifiers: Hypertension type: essential hypertension Qualified Code(s): I10 - Essential (primary) hypertension (3) CAD (coronary artery disease) Priority: Secondary Status: Chronic Qualifiers: Coronary Disease-Associated Artery/Lesion type: [place] artery [place] vs. transplanted heart: [place] heart Associated angina: without angina Qualified Code(s): I25.10 - Atherosclerotic heart disease of [place] coronary artery without angina pectoris (4) DVT prophylaxis Priority: Secondary Status: Acute - Discharge Medications Prescriptions: Diltiazem HCl [Cardizem] 90 mg PO BID #60 tablet Home Medications: Cholecalciferol (Vitamin D3) [Vitamin D3] 2,000 unit PO DAILY 07/23/15 [History] Finasteride [Proscar] 5 mg PO DAILY 07/23/15 [History] Tamsulosin [Flomax] 0.8 mg PO HS 07/23/15 [History] Alprazolam [Xanax 0.5 MG Tablet] 0.5 mg PO HS 01/14/17 [History] Ferrous Sulfate 325 mg PO DAILY 01/14/17 [History] Folic Acid 0.8 mg PO DAILY 01/14/17 [History] Gabapentin [Neurontin] 1,600 mg PO HS 01/14/17 [History] Gabapentin [Neurontin] 800 mg PO BID 01/14/17 [History] HYDROcodone/Acet 7.5/325 mg [[place] 7.5-325 mg] 1 tab PO QID PRN 01/14/17 [ History] Losartan Potassium [Cozaar] 100 mg PO DAILY PRN 01/14/17 [History] Magnesium Oxide [Magnesium] 400 mg PO DAILY 01/14/17 [History] Pravastatin Sodium [Pravachol] 40 mg PO HS 01/14/17 [History] Ubidecarenone [Co Q-10] 200 mg PO DAILY 01/14/17 [History] Vitamin E Acid Succinate [Vitamin E] 400 units PO DAILY 01/14/17 [History] Diltiazem HCl [Cardizem] 90 mg PO BID #60 tablet 01/20/17 [Rx] Allergies/Adverse Reactions: Allergies No Known Allergies Allergy (Verified 07/18/15 10:18) Procedures/tests Complete & Pending: Procedures Performed prior 72 hours Category Date Time Status CT facial bones w con [CT] Routine Cat Scan 01/20/17 14:[address] head/brain wo/w con [CT] Routine Cat Scan 01/20/17 14:[address] soft tissue neck w con [CT] Routine Cat Scan 01/20/17 14:40 Draft Date of admission: 01/14/17 23:41 Primary care physician: Tulio Mora MD Consults: 01/15/17 01:19 Consult to Cardiology [CONS] Routine Comment: Consulting Provider: Cardiology Makayla Reason for Consult: Elevated troponin from 0.23 to 0.89. Admitted for sepsis. Pt denies chest pain. EKG no significant ischemic change. Appreicate cardiology evaluation and recommendations. Will call in the morning. Call Completed: No 01/15/17 05:57 Consult to Pulmonology [CONS] Routine Consulting Provider: [facility] [place] Reason for Consult: Atypical pneumonia /Multifocal pneumonia Call Completed: No 01/18/17 10:54 Consult to Occupational Therapy [CONS] Routine Comment: Evaluate, develop and implement POC Consult to Physical Therapy [CONS] Routine Comment: Evaluate, develop and implement POC Consult to Paramedic Supervisor [CONS] Routine Reason for SW Consult: patient states he may need some home health Discharging clinician: Johnie Knight - Patient Status Disposition: Home, Self-Care Condition: Fair Functional capacity at discharge: independent ambulation Overall status at discharge: patient is progressing back to baseline - Discharge Instructions Follow Up With: Tulio Mora MD [Primary Care Provider] - 01/22/17 3:00 pm Cristian Moffett DO [Partnered Physician] - Issac Santos MD [Partnered Physician] - - Diet and Activity Activity: increase activity as tolerated Diet: low fat, low cholesterol, low salt diet Interval History: Mr. 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 Patient presented with generalized weakness and fever. Patient started to fever, shortness of breath and productive cough with green sputum since 01/04. Patient saw his PCP Dr. Mora on 01/05 and was started on PO levofloxacin which he just finished the course today. Patient reports the shortness of breath and cough improves but still has fever as high as 103 at home. Patient still has feel sick with generalized weakness especially on bilateral lower extremities. Patient also has poor appetite and oral intake due to current illness. Patient also has some chest muscle soreness which he thinks it's from cough. Patient denies chest pain/pressure, palpitation, lightheadedness, syncope, abdominal pain, nausea, vomiting, diarrhea, skin rash/ itchiness. Patient's reports recent drive back from [place] with frequent stops. Patient reports no known personal or family history of blood clot disorder. Patient is up to date for all his vaccinations including flu shot and denies recent sick contact. In ED, patient was noted to have fever 101.6, tachycardia and tachypnea with O2 sat in 80s on room air. Patient doesn't use oxygen at home. CXR showed increased patchy multifocal pneumonia, likely atypical vs. viral pneumonia. Patient received bolus of IV NS and started on IV vancomycin, Zosyn and levofloxacin. Patient is admitted for further evaluation and management. Hospital course: Patient was hospitalized. Noted that his serology for H. influenzae was positive. Patient was started on appropriate medication. Patient completed the course of antibiotics/antiviral medication. During the hospitalization patient's blood pressure was persistently elevated. Patient was recently evaluated by cardiology and one of the aim during the cardiology visit was to re-add just a blood pressure medication. Patient is on Cardizem. I increase his Cardizem dose from 60 mg twice a day to 90 mg twice a day. CT scan of head, face, soft tissue neck was done. This was done in view of his previous head and neck cancer. Patient had occasional difficulty in swallowing and there was a concern raised during the hospitalization. CT scan did not show any new growth/changes. Today patient's blood pressure is very well controlled. And it is within acceptable range. All above findings discussed with the patient and his family. Plan Patient can go home today. Follow up with cardiology. Follow-up with oncology. Follow-up with PCP. At the time of discharge patient and his family member does not have any questions, concerns, updated or recommendation. - Time Spent with Patient Total time spent providing and/or coordinating discharge services: - Constitutional Vitals: Temp Pulse Resp BP Pulse Ox 98.3 F 81 16 165/78 94 01/20/17 15:31 01/20/17 15:31 01/20/17 15:31 01/20/17 15:31 01/20/17 15:31 General appearance: Present: cooperative, A&O X 3, pleasant, answers questions appropriately - Head Head exam: Present: atraumatic, normocephalic - Eye Eye exam: Present: PERRL, conjuntiva pink, sclera anicteric Pupils: Present: PERRL - Neck Neck exam general surgery: Present: supple, trachea midline. Absent: lymphadenopathy - Respiratory Respiratory exam: Present: CTAB. Absent: accessory muscle use, rales, rhonchi, wheezes - Cardiovascular Cardiovascular exam: Present: RRR, +S1, +S2. Absent: diastolic murmur, gallop, rubs, systolic murmur - GI/Abdominal GI/Abdominal exam: Present: normal bowel sounds, soft, no peritoneal signs. Absent: distended, tenderness - Extremities Exam Extremities exam: Present: warm, radial pulses palpable and symetrical. Absent : calf tenderness, cyanotic, pedal edema - Neurological Exam Neurological exam: Present: CN II-XII intact, oriented X3, no focal deficits. Absent: pronater drift, facial droop, speech deficit - Skin Skin exam: Present: dry, intact
--- NOTE | 2017-01-20 16:25 | Physician Discharge Referral ---
Home Health/Hosp Referral Info Transfer to: Home Health - Diagnosis (1) Pneumonia Priority: Primary Status: Acute (2) Hypertension Priority: Secondary Status: Chronic (3) CAD (coronary artery disease) Priority: Secondary Status: Chronic (4) DVT prophylaxis Priority: Secondary Status: Acute - Respiratory Orders Smoking Cessation: Smoking cessation has been advised. For more information, call the [place] Tobacco Quit Line at 9-696-WFYX-NOW. - Services Needed Following services are medically necessary services: Home Health Aide, Physical Therapy, Occupational Therapy - Transfer Medications Prescriptions: Diltiazem HCl [Cardizem] 90 mg PO BID #60 tablet Home Medications: Cholecalciferol (Vitamin D3) [Vitamin D3] 2,000 unit PO DAILY 07/23/15 [History] Finasteride [Proscar] 5 mg PO DAILY 07/23/15 [History] Tamsulosin [Flomax] 0.8 mg PO HS 07/23/15 [History] Alprazolam [Xanax 0.5 MG Tablet] 0.5 mg PO HS 01/14/17 [History] Ferrous Sulfate 325 mg PO DAILY 01/14/17 [History] Folic Acid 0.8 mg PO DAILY 01/14/17 [History] Gabapentin [Neurontin] 1,600 mg PO HS 01/14/17 [History] Gabapentin [Neurontin] 800 mg PO BID 01/14/17 [History] HYDROcodone/Acet 7.5/325 mg [[place] 7.5-325 mg] 1 tab PO QID PRN 01/14/17 [ History] Losartan Potassium [Cozaar] 100 mg PO DAILY PRN 01/14/17 [History] Magnesium Oxide [Magnesium] 400 mg PO DAILY 01/14/17 [History] Pravastatin Sodium [Pravachol] 40 mg PO HS 01/14/17 [History] Ubidecarenone [Co Q-10] 200 mg PO DAILY 01/14/17 [History] Vitamin E Acid Succinate [Vitamin E] 400 units PO DAILY 01/14/17 [History] Diltiazem HCl [Cardizem] 90 mg PO BID #60 tablet 01/20/17 [Rx] Allergies/Adverse Reactions: Allergies No Known Allergies Allergy (Verified 07/18/15 10:18) Certification: Further, I certify that my clinical findings support that this patient is homebound (i.e. absences from home require considerable and taxing effort and are for medical reasons or sabianist services or infrequently or short duration when for other reasons) because: Homebound Reason: Patient requires assistance of a person or device to safely leave home Attestation: My signature below is to certify that this patient is under my care and that I, or nurse practitioner, or a physician's certified nursing assistant working with me, has a face-to -face encounter with this patient.
== END 2017-01-20 17:06 | disposition home or self-care (01) | DRG 871 ==
LOC: EMEROO 18:20 → 2ANU 18:20 → SUATTDRO 23:41 → 2NENU 01-15 20:38
PROVIDERS: ADMIT Internal Medicine; ATTEND Internal Medicine

== ENCOUNTER 2021-04-17 13:02 | Observation (INO) ==
[2021-04-17] MEDS ORDERED: 0.9 % Sodium Chloride 1,000 ML IVC ONE (13:10)
[2021-04-17] MEDS ORDERED: 0.9 % Sodium Chloride 500 ML IVC ONE (13:19)
[2021-04-17 13:39] LABS: Basophils % 0.4 %; Eosinophils # 0.3 K/mcL (0.0-0.6); Eosinophils % 2.3 %; Hematocrit 34.5 % (37.5-50.1); Hemoglobin 11.3 g/dL (12.9-16.9); Immature Granulocytes % 0.6 % (0-4); Lymphocytes # 1.9 K/mcL (0.6-4.6); Lymphocytes % 17.5 %; Mean Corpuscular HGB Conc 32.8 g/dL (31.6-35.5); Mean Corpuscular Hemoglobin 29.9 pg (28.0-33.3); Mean Corpuscular Volume 91.3 fL (83.0-100.0); Mean Platelet Volume 11.6 fL (9.4-12.4); Monocytes # 0.8 K/mcL (0.0-1.3); Monocytes % 7.1 %; Neutrophils # 7.8 K/mcL (1.6-8.9); Platelet Count 173 K/mcL (140-400); Red Blood Count 3.78 M/mcL (4.19-5.50); Red Cell Distribution Width 12.4 % (11.5-14.5); Segmented Neutrophils % 72.1 %; White Blood Count 10.8 K/mcL (4.3-11.1)
[2021-04-17 13:45] LABS: INR 1.1
[2021-04-17 14:01] LABS: BUN/Creatinine Ratio 15 (6-26); Blood Urea Nitrogen 18 mg/dL (8-23); Calcium 9.2 mg/dL (8.6-10.3); Carbon Dioxide 27 mEq/L (23-29); Chloride 100 mEq/L (98-107); Glucose 154 mg/dL (70-105); Osmolality,Calculated 285 (280-300); Potassium 4.3 mEq/L (3.5-5.1); Sodium 135 mEq/L (136-145); Troponin I < 0.03 ng/mL (< 0.04); eGFR For African Americans > 60 (> 60); eGFR For Non-African Americans 57 (> 60)
[2021-04-17] MEDS ORDERED: Naloxone 0.4 MG/ML INJ IVP PRN (15:46)
[2021-04-17] MEDS ORDERED: Ondansetron 4 MG/2 ML VIAL IVP PRN (15:46)
[2021-04-17] MEDS ORDERED: Perflutren Lipid Microsphere 1.3 ML in 0.9 % Sodium Chloride 8.7 ML IVP PRN (15:47)
[2021-04-17] MEDS ORDERED: 0.9 % Sodium Chloride 1,000 ML IVC SCH (16:00)
[2021-04-17 17:36] LABS: Phosphorous 3.2 mg/dL (2.7-4.5)
[2021-04-17] MEDS: Gabapentin 400 MG CAPSULE PO SCH (22:25)
[2021-04-17] MEDS: *HR* HYDROcodone/Acet 5/325 mg TABLET PO PRN (22:25)
[2021-04-18 05:03] LABS: Basophils % 0.4 %; Eosinophils # 0.3 K/mcL (0.0-0.6); Eosinophils % 3.9 %; Hematocrit 36.8 % (37.5-50.1); Immature Granulocytes % 0.3 % (0-4); Lymphocytes # 1.9 K/mcL (0.6-4.6); Lymphocytes % 26.2 %; Mean Corpuscular HGB Conc 32.6 g/dL (31.6-35.5); Mean Corpuscular Hemoglobin 29.2 pg (28.0-33.3); Mean Corpuscular Volume 89.5 fL (83.0-100.0); Mean Platelet Volume 11.6 fL (9.4-12.4); Monocytes # 0.7 K/mcL (0.0-1.3); Monocytes % 9.8 %; Neutrophils # 4.3 K/mcL (1.6-8.9); Platelet Count 159 K/mcL (140-400); Red Blood Count 4.11 M/mcL (4.19-5.50); Red Cell Distribution Width 12.3 % (11.5-14.5); Segmented Neutrophils % 59.4 %; White Blood Count 7.2 K/mcL (4.3-11.1)
[2021-04-18] MEDS: *HR* HYDROcodone/Acet 5/325 mg TABLET PO PRN (05:11)
[2021-04-18 05:22] LABS: BUN/Creatinine Ratio 14 (6-26); Blood Urea Nitrogen 10 mg/dL (8-23); Calcium 8.9 mg/dL (8.6-10.3); Carbon Dioxide 27 mEq/L (23-29); Chloride 104 mEq/L (98-107); Glucose 88 mg/dL (70-105); Osmolality,Calculated 280 (280-300); Potassium 3.9 mEq/L (3.5-5.1); Sodium 136 mEq/L (136-145); eGFR For African Americans > 60 (> 60); eGFR For Non-African Americans > 60 (> 60)
[2021-04-18] MEDS ORDERED: Finasteride 5 MG TABLET PO SCH (09:00)
[2021-04-18] MEDS ORDERED: Cholecalciferol (D-3) 1,000 UNIT (25MCG) TABLET PO SCH (09:00)
[2021-04-18] MEDS ORDERED: Cyanocobalamin (B-12) 1,000 MCG TABLET PO SCH (09:00)
[2021-04-18] MEDS: Gabapentin 400 MG CAPSULE PO SCH ×2 (09:58→11:03)
[2021-04-18 11:40] VITALS: BP 181/79; PULSE 64; TEMP 98; O2SAT 92
[2021-04-21] MEDS ORDERED: Aspirin Enteric Coated 81 MG Tablet PO SCH (09:00)
== END 2021-04-18 16:44 | disposition home or self-care (01) ==
LOC: EMEROOARM 13:02 → 2NENU 13:02 → SUATTDRO 15:42 → 2NENU 16:15
PROVIDERS: ADMIT Internal Medicine; ATTEND Internal Medicine

== ENCOUNTER 2021-06-24 17:35 | Inpatient (IN) ==
[2021-06-24 20:19] LABS: Basophils % 0.1 %; Eosinophils # 0.1 K/mcL (0.0-0.6); Eosinophils % 0.4 %; Hematocrit 31.9 % (37.5-50.1); Hemoglobin 11.5 g/dL (12.9-16.9); Immature Granulocytes % 0.4 % (0-4); Lymphocytes # 1.6 K/mcL (0.6-4.6); Lymphocytes % 12.1 %; Mean Corpuscular HGB Conc 36.1 g/dL (31.6-35.5); Mean Corpuscular Hemoglobin 29.8 pg (28.0-33.3); Mean Corpuscular Volume 82.6 fL (83.0-100.0); Mean Platelet Volume 10.9 fL (9.4-12.4); Monocytes # 1.6 K/mcL (0.0-1.3); Neutrophils # 10.1 K/mcL (1.6-8.9); Platelet Count 220 K/mcL (140-400); Red Blood Count 3.86 M/mcL (4.19-5.50); Red Cell Distribution Width 11.5 % (11.5-14.5); White Blood Count 13.5 K/mcL (4.3-11.1)
[2021-06-24 20:27] LABS: Bilirubin,Urine Negative (Negative); Blood,Urine Negative (Negative); Clarity,Urine Clear (Clear); Color,Urine Light-Yellow (Yellow); Glucose,Urine (UA) Normal (Normal); Ketones,Urine Negative (Negative); Leukocyte Esterase,Urine Negative (Negative); Nitrite,Urine Negative (Negative); PH,Urine 6.5 pH Units (5.0-8.0); Protein,Urine Trace mg/dL (Neg-Trace); Specific Gravity,Urine 1.011 (1.010-1.025); Urobilinogen,Urine Normal (Normal)
[2021-06-24 20:36] LABS: Amphetamine Screen,Urine Negative ng/mL (Cutoff=1000); Barbiturate Screen,Urine Negative ng/mL (Cutoff=200); Benzodiazepines Screen,Urine Negative ng/mL (Cutoff=200); Cannabinoid Screen,Urine Negative ng/mL (Cutoff = 50); Cocaine Screen,Urine Negative ng/mL (Cutoff= 300); Opiate Screen,Urine Negative ng/mL (Cutoff=300); Phencyclidine Screen,Urine Negative ng/mL (Cutoff=25)
[2021-06-24 20:45] LABS: Alanine Aminotransferase 15 Units/L (7-52); Albumin 4.2 g/dL (3.5-5.7); Albumin/Globulin Ratio 1.6 (1.1-2.2); Alkaline Phosphatase 48 Units/L (34-104); Aspartate Amino Transferase 15 Units/L (13-39); BUN/Creatinine Ratio 18 (6-26); Bilirubin,Direct 0.2 mg/dL (0.0-0.2); Bilirubin,Indirect 0.5 mg/dL (0.0-1.0); Bilirubin,Total 0.7 mg/dL (0.3-1.0); Blood Urea Nitrogen 15 mg/dL (8-23); Calcium 9.9 mg/dL (8.6-10.3); Carbon Dioxide 31 mEq/L (23-29); Chloride 77 mEq/L (98-107); Ethanol < 10 mg/dL (Less than 10); Globulin 2.6 g/dL (2.4-3.5); Glucose 105 mg/dL (70-105); Osmolality,Calculated 243 (280-300); Potassium 3.6 mEq/L (3.5-5.1); Sodium 116 mEq/L (136-145); Total Protein 6.8 g/dL (6.4-8.9); eGFR For African Americans > 60 (> 60); eGFR For Non-African Americans > 60 (> 60)
[2021-06-24 21:46] LABS: Influenza A PCR Negative (Negative); Influenza B PCR Negative (Negative); Resp. Syncytial Virus PCR Negative (Negative)
[2021-06-24 21:47] LABS: SARS-CoV-2 by PCR (In House) Negative (Negative)
[2021-06-24] MEDS ORDERED: Acetaminophen 325 MG TABLET PO PRN (22:12)
[2021-06-24] MEDS ORDERED: Ondansetron 4 MG/2 ML VIAL IVP PRN (22:12)
[2021-06-24] MEDS ORDERED: Naloxone 0.4 MG/ML INJ IVP PRN (22:12)
[2021-06-24 22:20] LABS: Sodium, Urine 43.5 mEq/L
[2021-06-24 23:04] LABS: BUN/Creatinine Ratio 20 (6-26); Blood Urea Nitrogen 15 mg/dL (8-23); Calcium 9.8 mg/dL (8.6-10.3); Carbon Dioxide 32 mEq/L (23-29); Chloride 77 mEq/L (98-107); Glucose 105 mg/dL (70-105); Osmolality,Calculated 243 (280-300); Potassium 3.7 mEq/L (3.5-5.1); Sodium 116 mEq/L (136-145); eGFR For African Americans > 60 (> 60); eGFR For Non-African Americans > 60 (> 60)
[2021-06-25 01:12] LABS: BUN/Creatinine Ratio 18 (6-26); Blood Urea Nitrogen 13 mg/dL (8-23); Calcium 9.3 mg/dL (8.6-10.3); Carbon Dioxide 31 mEq/L (23-29); Chloride 78 mEq/L (98-107); Glucose 110 mg/dL (70-105); Osmolality,Calculated 245 (280-300); Potassium 3.5 mEq/L (3.5-5.1); Sodium 117 mEq/L (136-145); eGFR For African Americans > 60 (> 60); eGFR For Non-African Americans > 60 (> 60)
[2021-06-25] MEDS: Gabapentin 300 MG CAPSULE PO SCH ×4 (01:53→20:12)
[2021-06-25 05:25] LABS: Basophils % 0.1 %; Eosinophils % 0.4 %; Hematocrit 33.1 % (37.5-50.1); Hemoglobin 11.6 g/dL (12.9-16.9); Immature Granulocytes % 0.3 % (0-4); Lymphocytes % 9.7 %; Mean Corpuscular Volume 82.8 fL (83.0-100.0); Mean Platelet Volume 11.1 fL (9.4-12.4); Monocytes # 1.1 K/mcL (0.0-1.3); Monocytes % 11.5 %; Neutrophils # 7.8 K/mcL (1.6-8.9); Platelet Count 209 K/mcL (140-400); Red Cell Distribution Width 11.4 % (11.5-14.5); White Blood Count 9.9 K/mcL (4.3-11.1)
[2021-06-25 05:45] LABS: Magnesium 1.6 mg/dL (1.6-2.6); Phosphorous 2.5 mg/dL (2.7-4.5)
[2021-06-25 05:47] LABS: Transferrin 208 mg/dL (203-362)
[2021-06-25 05:57] LABS: BUN/Creatinine Ratio 19 (6-26); Blood Urea Nitrogen 13 mg/dL (8-23); Calcium 9.1 mg/dL (8.6-10.3); Carbon Dioxide 32 mEq/L (23-29); Chloride 79 mEq/L (98-107); Glucose 104 mg/dL (70-105); Osmolality,Calculated 246 (280-300); Potassium 3.3 mEq/L (3.5-5.1); Sodium 118 mEq/L (136-145); eGFR For African Americans > 60 (> 60); eGFR For Non-African Americans > 60 (> 60)
[2021-06-25 06:03] LABS: Ferritin 161 ng/mL (20-250)
[2021-06-25 09:52] LABS: % Iron Saturation 9 % (20-55); Iron 27 mcg/dL (65-175)
[2021-06-25] MEDS: amLODIPine 5 MG TABLET PO SCH (09:58)
[2021-06-25 10:22] LABS: BUN/Creatinine Ratio 15 (6-26); Blood Urea Nitrogen 12 mg/dL (8-23); Calcium 9.7 mg/dL (8.6-10.3); Carbon Dioxide 34 mEq/L (23-29); Chloride 79 mEq/L (98-107); Glucose 111 mg/dL (70-105); Osmolality,Calculated 248 (280-300); Potassium 3.6 mEq/L (3.5-5.1); Sodium 119 mEq/L (136-145); eGFR For African Americans > 60 (> 60); eGFR For Non-African Americans > 60 (> 60)
[2021-06-25] MEDS ORDERED: *HR* Enoxaparin 40 MG/0.4 ML SYRINGE SQ ONE (13:45)
[2021-06-25 13:51] LABS: BUN/Creatinine Ratio 15 (6-26); Blood Urea Nitrogen 13 mg/dL (8-23); Carbon Dioxide 32 mEq/L (23-29); Chloride 80 mEq/L (98-107); Glucose 105 mg/dL (70-105); Osmolality,Calculated 250 (280-300); Potassium 3.9 mEq/L (3.5-5.1); Sodium 120 mEq/L (136-145); eGFR For African Americans > 60 (> 60); eGFR For Non-African Americans > 60 (> 60)
[2021-06-25 18:07] LABS: BUN/Creatinine Ratio 18 (6-26); Blood Urea Nitrogen 16 mg/dL (8-23); Calcium 9.5 mg/dL (8.6-10.3); Carbon Dioxide 32 mEq/L (23-29); Chloride 83 mEq/L (98-107); Glucose 135 mg/dL (70-105); Osmolality,Calculated 253 (280-300); Potassium 3.9 mEq/L (3.5-5.1); Sodium 120 mEq/L (136-145); eGFR For African Americans > 60 (> 60); eGFR For Non-African Americans > 60 (> 60)
[2021-06-25 21:29] LABS: BUN/Creatinine Ratio 19 (6-26); Blood Urea Nitrogen 16 mg/dL (8-23); Calcium 9.8 mg/dL (8.6-10.3); Carbon Dioxide 30 mEq/L (23-29); Chloride 85 mEq/L (98-107); Glucose 113 mg/dL (70-105); Osmolality,Calculated 256 (280-300); Potassium 4.2 mEq/L (3.5-5.1); Sodium 122 mEq/L (136-145); eGFR For African Americans > 60 (> 60); eGFR For Non-African Americans > 60 (> 60)
[2021-06-26] MEDS: *HR* Labetalol 20 MG/4 ML SYRINGE IVP PRN ×2 (00:28→13:01)
[2021-06-26 03:56] LABS: BUN/Creatinine Ratio 20 (6-26); Blood Urea Nitrogen 16 mg/dL (8-23); Calcium 9.6 mg/dL (8.6-10.3); Carbon Dioxide 29 mEq/L (23-29); Chloride 87 mEq/L (98-107); Glucose 113 mg/dL (70-105); Magnesium 1.8 mg/dL (1.6-2.6); Osmolality,Calculated 258 (280-300); Phosphorous 2.8 mg/dL (2.7-4.5); Potassium 4.2 mEq/L (3.5-5.1); Sodium 123 mEq/L (136-145); eGFR For African Americans > 60 (> 60); eGFR For Non-African Americans > 60 (> 60)
[2021-06-26] MEDS: *HR* Enoxaparin 40 MG/0.4 ML SYRINGE SQ SCH (05:17)
[2021-06-26] MEDS: Finasteride 5 MG TABLET PO SCH (08:54)
[2021-06-26] MEDS: Gabapentin 400 MG CAPSULE PO SCH ×2 (08:54→21:00)
[2021-06-26] MEDS: amLODIPine 5 MG TABLET PO SCH (08:54)
[2021-06-26] MEDS: DilTIAZem SR (12hr) 90 MG CAP.ER.12H PO SCH ×2 (08:54→21:00)
[2021-06-26] MEDS: Aspirin Enteric Coated 81 MG Tablet PO SCH (08:59)
[2021-06-26] MEDS: carvediloL 6.25 MG TABLET PO SCH (17:33)
[2021-06-27 03:39] LABS: BUN/Creatinine Ratio 20 (6-26); Blood Urea Nitrogen 20 mg/dL (8-23); Calcium 9.2 mg/dL (8.6-10.3); Carbon Dioxide 26 mEq/L (23-29); Chloride 89 mEq/L (98-107); Glucose 109 mg/dL (70-105); Osmolality,Calculated 261 (280-300); Potassium 4.1 mEq/L (3.5-5.1); Sodium 124 mEq/L (136-145); eGFR For African Americans > 60 (> 60); eGFR For Non-African Americans > 60 (> 60)
[2021-06-27] MEDS: *HR* Enoxaparin 40 MG/0.4 ML SYRINGE SQ SCH (04:58)
[2021-06-27] MEDS: Gabapentin 400 MG CAPSULE PO SCH ×2 (08:25→20:52)
[2021-06-27] MEDS: carvediloL 6.25 MG TABLET PO SCH ×2 (08:25→18:18)
[2021-06-27] MEDS: amLODIPine 5 MG TABLET PO SCH (08:25)
[2021-06-27] MEDS: DilTIAZem SR (12hr) 90 MG CAP.ER.12H PO SCH ×2 (08:26→20:53)
[2021-06-27] MEDS: Finasteride 5 MG TABLET PO SCH (08:26)
[2021-06-27] MEDS ORDERED: Methyl Salicylate/Menthol 57 APPL/57 GM TUBE TP PRN (18:47)
[2021-06-27] MEDS ORDERED: Methyl Salicylate/Menthol 85 APPL/85 GM TUBE TP PRN (19:00)
[2021-06-27] MEDS: Melatonin 3 MG TABLET PO PRN (23:53)
[2021-06-28] MEDS: *HR* Enoxaparin 40 MG/0.4 ML SYRINGE SQ SCH (05:29)
[2021-06-28] MEDS: Finasteride 5 MG TABLET PO SCH (09:26)
[2021-06-28] MEDS: Gabapentin 400 MG CAPSULE PO SCH ×2 (09:26→20:45)
[2021-06-28] MEDS: amLODIPine 5 MG TABLET PO SCH (09:26)
[2021-06-28] MEDS: carvediloL 6.25 MG TABLET PO SCH ×2 (09:27→17:27)
[2021-06-28] MEDS: DilTIAZem SR (12hr) 90 MG CAP.ER.12H PO SCH ×2 (09:27→20:45)
[2021-06-28 09:48] LABS: BUN/Creatinine Ratio 26 (6-26); Blood Urea Nitrogen 24 mg/dL (8-23); Calcium 9.5 mg/dL (8.6-10.3); Carbon Dioxide 26 mEq/L (23-29); Chloride 90 mEq/L (98-107); Glucose 102 mg/dL (70-105); Osmolality,Calculated 264 (280-300); Potassium 4.2 mEq/L (3.5-5.1); Sodium 125 mEq/L (136-145); eGFR For African Americans > 60 (> 60); eGFR For Non-African Americans > 60 (> 60)
[2021-06-28 14:10] LABS: Thyroid Stimulating Hormone 4.019 mcIU/mL (0.340-5.600)
[2021-06-28 20:10] LABS: Bilirubin,Urine Negative (Negative); Blood,Urine Negative (Negative); Clarity,Urine Clear (Clear); Color,Urine Yellow (Yellow); Glucose,Urine (UA) Normal (Normal); Ketones,Urine Negative (Negative); Leukocyte Esterase,Urine Negative (Negative); Nitrite,Urine Negative (Negative); PH,Urine 5.5 pH Units (5.0-8.0); Protein,Urine Trace mg/dL (Neg-Trace); Specific Gravity,Urine 1.021 (1.010-1.025); Urobilinogen,Urine Normal (Normal)
[2021-06-28 20:14] LABS: Sodium, Urine 13.9 mEq/L
[2021-06-28] MEDS: Melatonin 3 MG TABLET PO PRN (20:46)
[2021-06-29] MEDS: *HR* Enoxaparin 40 MG/0.4 ML SYRINGE SQ SCH (04:43)
[2021-06-29] MEDS: Gabapentin 400 MG CAPSULE PO SCH ×2 (07:49→20:40)
[2021-06-29] MEDS: DilTIAZem SR (12hr) 90 MG CAP.ER.12H PO SCH ×2 (07:49→20:40)
[2021-06-29] MEDS: Finasteride 5 MG TABLET PO SCH (07:49)
[2021-06-29] MEDS: carvediloL 6.25 MG TABLET PO SCH ×2 (07:49→16:53)
[2021-06-29] MEDS: amLODIPine 5 MG TABLET PO SCH (07:49)
[2021-06-29 09:01] LABS: BUN/Creatinine Ratio 30 (6-26); Blood Urea Nitrogen 25 mg/dL (8-23); Calcium 9.6 mg/dL (8.6-10.3); Carbon Dioxide 28 mEq/L (23-29); Chloride 91 mEq/L (98-107); Glucose 107 mg/dL (70-105); Osmolality,Calculated 267 (280-300); Potassium 4.3 mEq/L (3.5-5.1); Sodium 126 mEq/L (136-145); eGFR For African Americans > 60 (> 60); eGFR For Non-African Americans > 60 (> 60)
[2021-06-29] MEDS ORDERED: Tolvaptan 15 MG TABLET PO ONE (12:14)
[2021-06-30] MEDS: Melatonin 3 MG TABLET PO PRN (00:38)
[2021-06-30] MEDS: *HR* Enoxaparin 40 MG/0.4 ML SYRINGE SQ SCH (05:20)
[2021-06-30 07:13] VITALS: O2SAT 91
[2021-06-30 07:49] LABS: Hematocrit 37.4 % (37.5-50.1); Hemoglobin 12.5 g/dL (12.9-16.9); Mean Corpuscular HGB Conc 33.4 g/dL (31.6-35.5); Mean Corpuscular Hemoglobin 29.3 pg (28.0-33.3); Mean Corpuscular Volume 87.6 fL (83.0-100.0); Platelet Count 280 K/mcL (140-400); Red Blood Count 4.27 M/mcL (4.19-5.50); White Blood Count 8.6 K/mcL (4.3-11.1)
[2021-06-30 08:08] LABS: BUN/Creatinine Ratio 28 (6-26); Blood Urea Nitrogen 25 mg/dL (8-23); Calcium 9.8 mg/dL (8.6-10.3); Carbon Dioxide 29 mEq/L (23-29); Chloride 97 mEq/L (98-107); Glucose 95 mg/dL (70-105); Osmolality,Calculated 282 (280-300); Potassium 4.5 mEq/L (3.5-5.1); Sodium 134 mEq/L (136-145); eGFR For African Americans > 60 (> 60); eGFR For Non-African Americans > 60 (> 60)
[2021-06-30 08:11] LABS: Albumin/Globulin Ratio 1.7 (1.1-2.2); Bilirubin,Direct 0.1 mg/dL (0.0-0.2); Bilirubin,Indirect 0.3 mg/dL (0.0-1.0); Bilirubin,Total 0.4 mg/dL (0.3-1.0); Globulin 2.4 g/dL (2.4-3.5); Total Protein 6.4 g/dL (6.4-8.9)
[2021-06-30] MEDS: Aspirin Enteric Coated 81 MG Tablet PO SCH (08:23)
[2021-06-30] MEDS: Finasteride 5 MG TABLET PO SCH (08:23)
[2021-06-30] MEDS: amLODIPine 5 MG TABLET PO SCH (08:23)
[2021-06-30] MEDS: Gabapentin 400 MG CAPSULE PO SCH (08:23)
[2021-06-30] MEDS: DilTIAZem SR (12hr) 90 MG CAP.ER.12H PO SCH (08:23)
[2021-06-30] MEDS: carvediloL 6.25 MG TABLET PO SCH (08:24)
[2021-06-30 11:49] VITALS: BP 118/69; PULSE 88; TEMP 97.8
[2021-06-30 14:06] LABS: Metanephrine, Plasma 0.21 nmol/L (0.00-0.49)
== END 2021-06-30 14:26 | disposition home health service (06) | DRG 643 ==
LOC: EMEROOARM 17:35 → 3NENU 17:35 → 3BNU 22:36 → SUATTDRO 06-25 00:20 → 3NENU 06-25 01:46
PROVIDERS: ADMIT Internal Medicine; ATTEND Internal Medicine